=== PATIENT | female | born 1985 | race Caucasian/White ===

== ENCOUNTER 2016-10-18 18:10 | Emergency (ER) | payer OTHER ==
--- NOTE | 2016-10-18 19:08 | ED ---
General Adult HPI - General Chief complaint: Recheck/Abnormal Lab/Rx Stated complaint: sore throat/PATTIE Time Seen by Provider: 10/18/16 18:43 Source: patient, family, RN notes reviewed Mode of arrival: ambulatory Limitations: no limitations - History of Present Illness Initial comments: Chief complaint and history of present illness this is a 11-year-old female here for complaint of sore throat and fever. Also she has irritable bowel syndrome and has not had a bowel movement for 7 days. No nausea no vomiting. - Related Data Home Medications Medication Instructions Recorded Confirmed Ibuprofen [Motrin] 800 mg PO BID PRN 06/16/15 10/18/16 Previous Rx's Medication Instructions Recorded Ciprofloxacin HCl [Cipro] 500 mg PO Q12HR #14 tablet 10/18/16 Allergies Allergy/AdvReac Type Severity Reaction Status Date / Time sulfamethoxazole Allergy Rash/Hives Verified 10/18/16 18:33 [From Bactrim] trimethoprim [From Bactrim] Allergy Rash/Hives Verified 10/18/16 18:33 Review of Systems ROS Statement: Those systems with pertinent positive or pertinent negative responses have been documented in the HPI. Review of systems. Patient denies headache or stiff neck. She does have sore throat. Mild anterior cervical lymphadenopathy. No meningeal rotation. Deep breaths cause lower musculature discomfort both left and right side of the chest. She can splint the area and decreased pain. Minimal dry coughing. No abdominal pain. No peripheral problems. No rashes. All systems are reviewed. Past medical problems significant for arthritis and irritable bowel syndrome. Surgeries , cholecystectomy, multiple ear surgeries, she had arrived in her right femur. Also right knee was scoped 2 times. The patient's family history significant for skin cancer. Patient has ALLERGIES to sulfa. Denies smoking denies drinking. ROS Other: All systems not noted in ROS Statement are negative. Past Medical History Additional Past Medical History / Comment(s): arthritis and neuropathy History of Any Multi-Drug Resistant Organisms: None Reported Past Surgical History: Section, Cholecystectomy, Ear Surgery, Orthopedic Surgery Additional Past Surgical History / Comment(s): naman ear surgeries, andrey in femer in right leg Past Psychological History: No Psychological Hx Reported Smoking Status: Never smoker Past Alcohol Use History: None Reported Past Drug Use History: None Reported General Exam - General Exam Comments Initial Comments: General: The patient is awake and alert, complaining of a sore throat for 1 day. Dry cough. Vital signs temp 100.3 pulse 14 respiratory rate 20 pulse ox 97% room air blood pressure 180/98 Eye: Pupils are equal, round and reactive to light, extra-ocular movements are intact ; there is normal conjunctiva bilaterally. No signs of icterus. Ears, nose, mouth and throat: Evidence of previous surgery left ear right ear obstructed by cerumen. But no drainage noted. Beefy red pharynx and tonsils. Neck: Mild anterior cervical lymphadenopathy, no meningeal irritation or stiff neck. Cardiovascular: Tachycardic heart rate 102.. No murmur, rub or gallop is appreciated. Respiratory: Lungs are clear to auscultation, respirations are non-labored, breath sounds are equal. No wheezes, stridor, rales, or rhonchi. Occasional dry cough. Gastrointestinal: Soft, non-distended, non-tender abdomen without masses or organomegaly noted. There is no rebound or guarding present. Bowel sounds normal. Patient has history of irritable bowel syndrome. Has been trying laxatives without success. Back: There is no tenderness to palpation in the midline. There is no obvious deformity. No rashes noted. Musculoskeletal: Normal ROM, no tenderness, There is no pedal edema. There is no calf tenderness or swelling. Neurological: No complaint of or any evidence of any neurological deficits. Skin: Skin is warm and dry and no rashes or lesions are noted. Limitations: no limitations Course Vital Signs 10/18/16 18:30 Temperature 100.3 F H Pulse Rate 104 H Respiratory 20 Rate Blood Pressure 180/98 O2 Sat by Pulse 97 Oximetry Medical Decision Making - Medical Decision Making Vital decision making the patient's strep test is negative. With the urine shows signs of infection. The patient is not . She'll be advised to use Tylenol for fever and Cipro 500 twice a day for 7 days. Advised to get the urine rechecked in 10 days. Advised increase fluid intake. - Lab Data Lab Results 10/18/16 10/18/16 10/18/16 Range/Units 19:10 19:20 19:20 Urine Color Dark Yellow Urine Appearance Turbid H (Clear) Urine pH 5.5 (5.0-8.0) Ur Specific [place] 1.028 (1.001-1.035) Urine Protein 1+ H (Negative) Urine Glucose (UA) Negative (Negative) Urine Ketones Negative (Negative) Urine Blood Negative (Negative) Urine Nitrite Negative (Negative) Urine Bilirubin Negative (Negative) Urine Urobilinogen <2.0 (<2.0) mg/dL Ur Leukocyte Esterase Large H (Negative) Urine WBC 14 H (0-5) /hpf Urine Bacteria Few H (None) /hpf Urine Mucus Many H (None) /hpf Urine HCG, Qual Not Detected (Not Detectd) Group A Strep Rapid Negative (Negative) Disposition Clinical Impression: Urinary tract infection, Acute viral pharyngitis Disposition: HOME SELF-CARE Condition: Fair Instructions: Urinary Tract Infection in Women (ED), Pharyngitis (ED) Additional Instructions: Increase fluids. Use Tylenol for pain or fever. Take Cipro 500 twice a day for one week. Get urine rechecked 3 days later. Use magnesium citrate as directed Prescriptions: Ciprofloxacin HCl [Cipro] 500 mg PO Q12HR #14 tablet Referrals: None,Stated [Primary Care Provider] - 1-2 days Time of Disposition: 21:09
[2016-10-18 19:44] LABS: Appearance,Urine Turbid (Clear); Bacteria,Urine Few /hpf; Bilirubin,Urine Negative (Negative); Glucose,Urine (UA) Negative (Negative); Ketones,Urine Negative (Negative); Leukocyte Esterase,Urine Large (Negative); Mucus,Urine Many /hpf; Nitrite,Urine Negative (Negative); PH, Urine 5.5 (5.0-8.0); Particle Count 137199; Protein,Urine 1+ (Negative); Specific Gravity,Urine 1.028 (1.001-1.035); UA Billing (MACRO vs. MICRO) MICRO; Urobilinogen,Urine <2.0 mg/dL (<2.0); WBC,Urine 14 /hpf (0-5)
[2016-10-18] MEDS ORDERED: CIPROFLOXACIN HCL 500 MG TAB PO STA (21:07)
[2016-10-18] MEDS ORDERED: MAGNESIUM CITRATE 296 ML BOTTLE PO ONE (21:07)
[2016-10-18 21:26] VITALS: BP 124/72; PULSE 95; RESP 18; TEMP 100
== END 2016-10-18 21:26 | disposition home or self-care (01) ==
LOC: EC 18:10
DX: N39.0 Urinary tract infection, site not specified (principal); J02.9 Acute pharyngitis, unspecified; Z88.2 Allergy status to sulfonamides
CPT/HCPCS: 81001; 81025; 87081; 87086; 87430; 99283

== ENCOUNTER → 2017-01-16 | Outpatient (CLI) | payer BC, OTHER ==
--- NOTE | 2017-01-16 11:16 | FL ---
Modified barium swallow. HISTORY: Dysphagia. Modified barium swallow was performed with the department of speech pathology. The patient was prese nted with various consistencies of barium. There is no evidence for aspiration or penetration. Full report is to follow from the department of speech pathology. Impression: Normal study.
== END | disposition home or self-care (01) ==
LOC: RADFLMAIN 10:44
PROVIDERS: ATTEND Family Medicine
DX: R13.10 Dysphagia, unspecified (principal)
CPT/HCPCS: 74230

== ENCOUNTER 2017-04-28 17:29 | Emergency (ER) | payer BC, OTHER ==
[2017-04-28 17:35] VITALS: RESP 20
[2017-04-28] MEDS ORDERED: diphenhydrAMINE 50 MG/ML 1 ML VIAL IVP STA (17:46)
[2017-04-28] MEDS ORDERED: methylPREDNISolone SOD SUCCI 125 MG/2 ML VIAL IV STA (17:46)
[2017-04-28] MEDS ORDERED: SODIUM CHLORIDE 0.9% 500 ML IV ONE (17:46)
[2017-04-28] MEDS ORDERED: FAMOTIDINE 20 MG/2 ML VIAL IV STA (17:46)
--- NOTE | 2017-04-28 18:40 | ED ---
Allergic Reaction HPI - General Chief complaint: Allergic Reaction Stated complaint: Allergic reaction Time Seen by Provider: 04/28/17 17:42 Source: patient, RN notes reviewed Mode of arrival: ambulatory Limitations: no limitations - History of Present Illness Initial Comments: This a 30-year-old female presents emergency Department chief complaint ALLERGIC reaction. Patient states she had one similar few weeks ago. Patient states that it happened while she was at work after she went to the bathroom. Symmetrical her issue she had last time. Patient states she took 25 mg of Benadryl prior to arrival. She states that she has a diffuse rash with redness and hives. Patient denies any difficulty breathing or difficulty swallowing - Related Data Home Medications Medication Instructions Recorded Confirmed ALPRAZolam [Xanax] 0.5 mg PO BID PRN 04/16/17 04/28/17 Amitriptyline HCl [Elavil] 75 mg PO HS PRN 04/16/17 04/28/17 Lisinopril [Prinivil] 10 mg PO DAILY 04/16/17 04/28/17 medroxyPROGESTERone [Depo-Provera] 150 mg IM Q84D 04/16/17 04/28/17 traMADol HCL [Ultram] 50 mg PO BID PRN 04/28/17 04/28/17 Previous Rx's Medication Instructions Recorded EPINEPHrine (Auto Inject) [Epipen] 0.3 mg IM ONCE PRN #1 syringe 04/16/17 diphenhydrAMINE [Benadryl] 25 mg PO QID PRN #20 capsule 04/16/17 diphenhydrAMINE [Benadryl] 50 mg PO QID PRN #20 capsule 04/28/17 predniSONE 50 mg PO DAILY #3 tab 04/28/17 Allergies Allergy/AdvReac Type Severity Reaction Status Date / Time ciprofloxacin [From Cipro] Allergy Unknown Verified 04/28/17 17:51 sulfamethoxazole Allergy Rash/Hives Verified 04/28/17 17:51 [From Bactrim] trimethoprim [From Bactrim] Allergy Rash/Hives Verified 04/28/17 17:51 Review of Systems ROS Statement: Those systems with pertinent positive or pertinent negative responses have been documented in the HPI. ROS Other: All systems not noted in ROS Statement are negative. Past Medical History Past Medical History: No Reported History Additional Past Medical History / Comment(s): arthritis and neuropathy History of Any Multi-Drug Resistant Organisms: None Reported Past Surgical History: Section, Cholecystectomy, Ear Surgery, Orthopedic Surgery Additional Past Surgical History / Comment(s): naman ear surgeries, andrey in femer in right leg Past Psychological History: No Psychological Hx Reported Smoking Status: Never smoker Past Alcohol Use History: None Reported Past Drug Use History: None Reported General Exam Limitations: no limitations General appearance: alert, in no apparent distress Head exam: Present: atraumatic, normocephalic, normal inspection Eye exam: Present: normal appearance, PERRL, EOMI. Absent: scleral icterus, conjunctival injection, periorbital swelling ENT exam: Present: normal exam, normal oropharynx, mucous membranes moist, TM's normal bilaterally, normal external ear exam Neck exam: Present: normal inspection, full ROM. Absent: tenderness, meningismus, lymphadenopathy Respiratory exam: Present: normal lung sounds bilaterally. Absent: respiratory distress, wheezes, rales, rhonchi, stridor Cardiovascular Exam: Present: regular rate, normal rhythm, normal heart sounds. Absent: systolic murmur, diastolic murmur, rubs, gallop, clicks Neurological exam: Present: alert, oriented X3, CN II-XII intact Skin exam: Present: warm, dry, intact, normal color, rash, urticaria Course Vital Signs 04/28/17 17:32 Temperature 97.9 F Pulse Rate 123 H Respiratory 20 Rate Blood Pressure 156/80 O2 Sat by Pulse 99 Oximetry Medical Decision Making - Medical Decision Making 31-year-old female presented emergency from for ALLERGIC reaction, rash. Patient is feeling improved after IV Benadryl, Solu-Medrol and Pepcid. Return parameters were discussed. Disposition Clinical Impression: Acute allergic reaction, Urticaria Disposition: HOME SELF-CARE Condition: Stable Instructions: General Allergic Reaction (ED) Additional Instructions: Please return to the Emergency Department if symptoms worsen or any other concerns. Prescriptions: diphenhydrAMINE [Benadryl] 50 mg PO QID PRN #20 capsule PRN Reason: ALLERGIC symptoms predniSONE 50 mg PO DAILY #3 tab Referrals: Maicol Emerson DO [Primary Care Provider] - 1-2 days Time of Disposition: 18:40
[2017-04-28 19:00] VITALS: BP 148/84; PULSE 103; TEMP 98.1
== END 2017-04-28 19:00 | disposition home or self-care (01) ==
LOC: EC 17:29
DX: L50.0 Allergic urticaria (principal); Z79.3 Long term (current) use of hormonal contraceptives; Z79.899 Other long term (current) drug therapy; Z88.1 Allergy status to other antibiotic agents; Z88.2 Allergy status to sulfonamides
CPT/HCPCS: 99283; 96374; 96375 ×2; J1200; J2930

== ENCOUNTER 2017-05-18 15:54 | Emergency (ER) | payer BC, OTHER ==
[2017-05-18] MEDS ORDERED: ACETAMINOPHEN TAB 500 MG TAB PO STA (17:42)
[2017-05-18] MEDS ORDERED: methylPREDNISolone SOD SUCCI 125 MG/2 ML VIAL IV STA (17:43)
[2017-05-18] MEDS ORDERED: IBUPROFEN IV 600 MG in SODIUM CHLORIDE 0.9% 250 ML IV STA (17:44)
--- NOTE | 2017-05-18 18:18 | ED ---
General Adult HPI - General Chief complaint: Allergic Reaction Stated complaint: Allergic Reaction/SOB Time Seen by Provider: 05/18/17 17:19 Source: patient, RN notes reviewed, old records reviewed Mode of arrival: wheelchair Limitations: no limitations - History of Present Illness Initial comments: Patient is a 28-year-old female with flushing over her entire body for one evening after work. She reports that symptoms started while she was at work, and she went home. No exacerbating factors as to cause for allergic reaction, she reports this has happened multiple times in the past. Patient reports that she's also been having or IBS exacerbation. She reports she's been having some bloody stools starting this evening. Patient states that for the past hour. She reports she has no specific chest pain, she complains of abdominal pain. She reports uses very chilled. She also noted that her fingertips are turning blue. Patient states that she's had no fever, but arrives tachycardic and with rigors. . - Related Data Home Medications Medication Instructions Recorded Confirmed ALPRAZolam [Xanax] 0.5 mg PO BID PRN 04/16/17 05/18/17 Amitriptyline HCl [Elavil] 75 mg PO HS PRN 04/16/17 05/18/17 Lisinopril [Prinivil] 10 mg PO DAILY 04/16/17 05/18/17 traMADol HCL [Ultram] 50 - 100 mg PO TID PRN 04/28/17 05/18/17 Ibuprofen [Motrin] 600 mg PO BID PRN 05/18/17 05/18/17 Previous Rx's Medication Instructions Recorded Diphenox-Atrop 2.5-0.025 mg 1 tab PO QID PRN #10 tablet 05/18/17 [Lomotil] Ondansetron Odt [Zofran Odt] 4 mg PO Q8HR PRN #12 tab 05/18/17 Famotidine [Pepcid] 20 mg PO BID #10 tablet 05/19/17 diphenhydrAMINE [Benadryl] 50 mg PO QID #20 capsule 05/19/17 predniSONE 60 mg PO DAILY #30 tab 05/19/17 Allergies Allergy/AdvReac Type Severity Reaction Status Date / Time ciprofloxacin [From Cipro] Allergy Unknown Verified 05/19/17 01:17 sulfamethoxazole Allergy Rash/Hives Verified 05/19/17 01:17 [From Bactrim] trimethoprim [From Bactrim] Allergy Rash/Hives Verified 05/19/17 01:17 Review of Systems ROS Statement: Those systems with pertinent positive or pertinent negative responses have been documented in the HPI. ROS Other: All systems not noted in ROS Statement are negative. Past Medical History Past Medical History: No Reported History Additional Past Medical History / Comment(s): arthritis and neuropathy History of Any Multi-Drug Resistant Organisms: None Reported Past Surgical History: Section, Cholecystectomy, Ear Surgery, Orthopedic Surgery Additional Past Surgical History / Comment(s): naman ear surgeries, andrey in femer in right leg Past Psychological History: No Psychological Hx Reported Smoking Status: Never smoker Past Alcohol Use History: None Reported Past Drug Use History: None Reported General Exam - General Exam Comments Initial Comments: Is a 31-year-old female. Patient appears to be in moderate discomfort. She has active riders, and is very flushed, a diffuse erythema over her face, chest , abdomen and back. Limitations: no limitations General appearance: alert, in no apparent distress Head exam: Present: atraumatic, normocephalic, normal inspection Eye exam: Present: normal appearance, PERRL, EOMI. Absent: scleral icterus, conjunctival injection, periorbital swelling ENT exam: Present: normal exam, normal oropharynx, mucous membranes moist Neck exam: Present: normal inspection. Absent: tenderness, meningismus, lymphadenopathy Respiratory exam: Present: normal lung sounds bilaterally. Absent: respiratory distress, wheezes, rales, rhonchi, stridor Cardiovascular Exam: Present: regular rate, normal rhythm, normal heart sounds. Absent: systolic murmur, diastolic murmur, rubs, gallop, clicks GI/Abdominal exam: Present: soft, tenderness (periumbilical tenderness), normal bowel sounds. Absent: distended, guarding, rebound, rigid Extremities exam: Present: normal inspection, full ROM, normal capillary refill. Absent: tenderness, pedal edema, joint swelling, calf tenderness Back exam: Present: normal inspection, full ROM Neurological exam: Present: alert, oriented X3, CN II-XII intact, normal gait Psychiatric exam: Present: normal affect, normal mood Skin exam: Present: warm, dry, intact, normal color. Absent: rash Course Vital Signs 05/18/17 05/18/17 05/18/17 15:57 18:05 19:04 Temperature 98.1 F 97 F L Pulse Rate 118 H 93 Respiratory 20 20 Rate Blood Pressure 106/55 131/70 O2 Sat by Pulse 98 97 Oximetry 05/18/17 05/18/17 20:12 21:23 Temperature 98.1 F Pulse Rate 86 95 Respiratory 18 18 Rate Blood Pressure 121/65 128/64 O2 Sat by Pulse 99 96 Oximetry Medical Decision Making - Medical Decision Making Patient is a 28-year-old female with flushing over her entire body for one evening after work. She reports that symptoms started while she was at work, and she went home. No exacerbating factors as to cause for allergic reaction, she reports this has happened multiple times in the past. Patient reports that she's also been having or IBS exacerbation. She reports she's been having some bloody stools starting this evening. Patient states that for the past hour. Patient was given IV fluids, and lab work obtained. Patient had elevated WBC, underwent CT abdomen and pelivs. Her hives and flushing went down with Fluids and steriods and motrin and tylenol. She states that she had another episode of bloody stool. CT abdomen shows no acute findings. Discussed with Dr. Thomas, he also examined patient. She was notn tender. Patient had a mildly elevated lactic acid, at 2.8. Given 2L of fluids. Patient does feel better at this time, reports she would likel to go home. I believe she was having an inflammatory response to IBS exacerbation. Discussed follow up with PCP and GI. Return parameters discussed. - Lab Data Result diagrams: 05/18/17 18:26 05/18/17 18:26 Lab Results 05/18/17 05/18/17 05/18/17 Range/Units 18:26 18:26 18:26 WBC 19.3 H (3.8-10.6) k/uL RBC 5.34 (3.80-5.40) m/uL Hgb 15.2 (11.4-16.0) gm/dL Hct 47.1 H (34.0-46.0) % MCV 88.2 (80.0-100.0) fL MCH 28.5 (25.0-35.0) pg MCHC 32.3 (31.0-37.0) g/dL RDW 14.5 (11.5-15.5) % Plt Count 348 (150-450) k/uL Neutrophils % 88 % Lymphocytes % 9 % Monocytes % 1 % Eosinophils % 0 % Basophils % 0 % Neutrophils # 17.0 H (1.3-7.7) k/uL Lymphocytes # 1.8 (1.0-4.8) k/uL Monocytes # 0.3 (0-1.0) k/uL Eosinophils # 0.1 (0-0.7) k/uL Basophils # 0.0 (0-0.2) k/uL PT (9.0-12.0) sec INR (<1.2) APTT (22.0-30.0) sec Sodium 138 (137-145) mmol/L Potassium 4.2 (3.5-5.1) mmol/L Chloride 103 (98-107) mmol/L Carbon Dioxide 21 L (22-30) mmol/L Anion Gap 14 mmol/L BUN 13 (7-17) mg/dL Creatinine 0.82 (0.52-1.04) mg/dL Est GFR (MDRD) Af Amer >60 (>60 ml/min/1.73 sqM) Est GFR (MDRD) Non-Af >60 (>60 ml/min/1.73 sqM) Glucose 184 H (74-99) mg/dL Lactic Ac Sepsis Rflx Plasma Lactic Acid Emiliano 2.8 H* (0.7-2.0) mmol/L Calcium 9.6 (8.4-10.2) mg/dL Total Bilirubin 0.3 (0.2-1.3) mg/dL AST 26 (14-36) U/L ALT 35 (9-52) U/L Alkaline Phosphatase 75 (38-126) U/L Total Protein 7.8 (6.3-8.2) g/dL Albumin 4.3 (3.5-5.0) g/dL Urine Color Urine Appearance (Clear) Urine pH (5.0-8.0) Ur Specific [place] (1.001-1.035) Urine Protein (Negative) Urine Glucose (UA) (Negative) Urine Ketones (Negative) Urine Blood (Negative) Urine Nitrite (Negative) Urine Bilirubin (Negative) Urine Urobilinogen (<2.0) mg/dL Ur Leukocyte Esterase (Negative) Urine RBC (0-5) /hpf Urine WBC (0-5) /hpf Ur Squamous Epith Cells (0-4) /hpf Hyaline Casts (0-2) /lpf Urine Mucus (None) /hpf Urine HCG, Qual (Not Detectd) Stool Occult Blood (Negative) Influenza Type A RNA (Not Detectd) Influenza Type B (PCR) (Not Detectd) 05/18/17 05/18/17 05/18/17 Range/Units 18:26 19:06 19:06 WBC (3.8-10.6) k/uL RBC (3.80-5.40) m/uL Hgb (11.4-16.0) gm/dL Hct (34.0-46.0) % MCV (80.0-100.0) fL MCH (25.0-35.0) pg MCHC (31.0-37.0) g/dL RDW (11.5-15.5) % Plt Count (150-450) k/uL Neutrophils % % Lymphocytes % % Monocytes % % Eosinophils % % Basophils % % Neutrophils # (1.3-7.7) k/uL Lymphocytes # (1.0-4.8) k/uL Monocytes # (0-1.0) k/uL Eosinophils # (0-0.7) k/uL Basophils # (0-0.2) k/uL PT 10.6 (9.0-12.0) sec INR 1.1 (<1.2) APTT 23.6 (22.0-30.0) sec Sodium (137-145) mmol/L Potassium (3.5-5.1) mmol/L Chloride (98-107) mmol/L Carbon Dioxide (22-30) mmol/L Anion Gap mmol/L BUN (7-17) mg/dL Creatinine (0.52-1.04) mg/dL Est GFR (MDRD) Af Amer (>60 ml/min/1.73 sqM) Est GFR (MDRD) Non-Af (>60 ml/min/1.73 sqM) Glucose (74-99) mg/dL Lactic Ac Sepsis Rflx Plasma Lactic Acid Emiliano (0.7-2.0) mmol/L Calcium (8.4-10.2) mg/dL Total Bilirubin (0.2-1.3) mg/dL AST (14-36) U/L ALT (9-52) U/L Alkaline Phosphatase (38-126) U/L Total Protein (6.3-8.2) g/dL Albumin (3.5-5.0) g/dL Urine Color Yellow Urine Appearance Cloudy H (Clear) Urine pH 5.0 (5.0-8.0) Ur Specific [place] 1.024 (1.001-1.035) Urine Protein 1+ H (Negative) Urine Glucose (UA) Trace H (Negative) Urine Ketones Negative (Negative) Urine Blood Negative (Negative) Urine Nitrite Negative (Negative) Urine Bilirubin Negative (Negative) Urine Urobilinogen 3.0 (<2.0) mg/dL Ur Leukocyte Esterase Negative (Negative) Urine RBC 1 (0-5) /hpf Urine WBC 5 (0-5) /hpf Ur Squamous Epith Cells 7 H (0-4) /hpf Hyaline Casts 20 H (0-2) /lpf Urine Mucus Occasional H (None) /hpf Urine HCG, Qual (Not Detectd) Stool Occult Blood Positive H (Negative) Influenza Type A RNA (Not Detectd) Influenza Type B (PCR) (Not Detectd) 05/18/17 05/18/17 05/18/17 Range/Units 19:06 19:21 20:36 WBC (3.8-10.6) k/uL RBC (3.80-5.40) m/uL Hgb (11.4-16.0) gm/dL Hct (34.0-46.0) % MCV (80.0-100.0) fL MCH (25.0-35.0) pg MCHC (31.0-37.0) g/dL RDW (11.5-15.5) % Plt Count (150-450) k/uL Neutrophils % % Lymphocytes % % Monocytes % % Eosinophils % % Basophils % % Neutrophils # (1.3-7.7) k/uL Lymphocytes # (1.0-4.8) k/uL Monocytes # (0-1.0) k/uL Eosinophils # (0-0.7) k/uL Basophils # (0-0.2) k/uL PT (9.0-12.0) sec INR (<1.2) APTT (22.0-30.0) sec Sodium (137-145) mmol/L Potassium (3.5-5.1) mmol/L Chloride (98-107) mmol/L Carbon Dioxide (22-30) mmol/L Anion Gap mmol/L BUN (7-17) mg/dL Creatinine (0.52-1.04) mg/dL Est GFR (MDRD) Af Amer (>60 ml/min/1.73 sqM) Est GFR (MDRD) Non-Af (>60 ml/min/1.73 sqM) Glucose (74-99) mg/dL Lactic Ac Sepsis Rflx Y Plasma Lactic Acid Emiliano (0.7-2.0) mmol/L Calcium (8.4-10.2) mg/dL Total Bilirubin (0.2-1.3) mg/dL AST (14-36) U/L ALT (9-52) U/L Alkaline Phosphatase (38-126) U/L Total Protein (6.3-8.2) g/dL Albumin (3.5-5.0) g/dL Urine Color Urine Appearance (Clear) Urine pH (5.0-8.0) Ur Specific [place] (1.001-1.035) Urine Protein (Negative) Urine Glucose (UA) (Negative) Urine Ketones (Negative) Urine Blood (Negative) Urine Nitrite (Negative) Urine Bilirubin (Negative) Urine Urobilinogen (<2.0) mg/dL Ur Leukocyte Esterase (Negative) Urine RBC (0-5) /hpf Urine WBC (0-5) /hpf Ur Squamous Epith Cells (0-4) /hpf Hyaline Casts (0-2) /lpf Urine Mucus (None) /hpf Urine HCG, Qual Not Detected (Not Detectd) Stool Occult Blood (Negative) Influenza Type A RNA Not Detected (Not Detectd) Influenza Type B (PCR) Not Detected (Not Detectd) 05/18/17 20:49 EKG shows sinus rhythm, normal EKG noted. There is a 7 beats were minute. Verbal 126 most seconds. QRS duration 80 ms. QT QTc is 374/450 mils x-ray noticed that the ST elevation or T-wave inversion. - Radiology Data Radiology results: report reviewed No significant acute finding seen. Dominant left ovarian follicle measuring 2.7 cm. Prominent size of spleen. Few sigmoid diverticula without evidence of diverticulitis. CXR reveiwed and no acute process. Disposition Clinical Impression: Allergic reaction, Bloody stool, Gastroenteritis Disposition: HOME SELF-CARE Condition: Good Instructions: Gastroenteritis (ED) Additional Instructions: Patient has a follow-up with primary care provider. Increase her fluid intake. Return to the emergency department if any alarming signs or symptoms occur. Prescriptions: Diphenox-Atrop 2.5-0.025 mg [Lomotil] 1 tab PO QID PRN #10 tablet PRN Reason: Loose Stool Ondansetron Odt [Zofran Odt] 4 mg PO Q8HR PRN #12 tab PRN Reason: Nausea Referrals: Maicol Emerson DO [Primary Care Provider] - 1-2 days Time of Disposition: 21:04
[2017-05-18] MEDS: SODIUM CHLORIDE 0.9% 500 ML IV SCH ×2 (18:27→19:28)
[2017-05-18 18:38] LABS: Basophils % (A) 0 %; Eosinophils # (A) 0.1 k/uL (0-0.7); Eosinophils % (A) 0 %; HCT 47.1 % (34.0-46.0); HGB 15.2 gm/dL (11.4-16.0); Lymphocytes # (A) 1.8 k/uL (1.0-4.8); Lymphocytes % (A) 9 %; MCH 28.5 pg (25.0-35.0); MCHC 32.3 g/dL (31.0-37.0); MCV 88.2 fL (80.0-100.0); Mean Platelet Volume 7.8; Monocytes # (A) 0.3 k/uL (0-1.0); Monocytes % (A) 1 %; Neutrophils % (A) 88 %; Platelet Count 348 k/uL (150-450); RBC 5.34 m/uL (3.80-5.40); RDW 14.5 % (11.5-15.5); WBC 19.3 k/uL (3.8-10.6)
[2017-05-18 18:46] LABS: INR 1.1 (<1.2); Prothrombin Time 10.6 sec (9.0-12.0)
[2017-05-18 18:47] LABS: Partial Thromboplastin Time 23.6 sec (22.0-30.0)
[2017-05-18 18:51] LABS: ALT 35 U/L (9-52); AST 26 U/L (14-36); Albumin 4.3 g/dL (3.5-5.0); Alkaline Phosphatase 75 U/L (38-126); Anion Gap 14 mmol/L; Blood Urea Nitrogen 13 mg/dL (7-17); Calcium 9.6 mg/dL (8.4-10.2); Carbon Dioxide 21 mmol/L (22-30); Chloride 103 mmol/L (98-107); Glucose 184 mg/dL (74-99); Potassium 4.2 mmol/L (3.5-5.1); Sodium 138 mmol/L (137-145); Total Bilirubin 0.3 mg/dL (0.2-1.3); Total Protein 7.8 g/dL (6.3-8.2)
[2017-05-18] MEDS ORDERED: RX INFO: IV CONTRAST WAS GIVEN 1 EACH MISC MISCELLANE PRN (19:02)
[2017-05-18 19:23] LABS: Appearance,Urine Cloudy (Clear); Bilirubin,Urine Negative (Negative); Blood,Urine Negative (Negative); Color,Urine Yellow; Glucose,Urine (UA) Trace (Negative); Hyaline Casts,Urine 20 /lpf (0-2); Ketones,Urine Negative (Negative); Leukocyte Esterase,Urine Negative (Negative); Mucus,Urine Occasional /hpf; Nitrite,Urine Negative (Negative); Protein,Urine 1+ (Negative); RBC,Urine 1 /hpf (0-5); Specific Gravity,Urine 1.024 (1.001-1.035); Squamous Epithelial Cell,Urine 7 /hpf (0-4); WBC,Urine 5 /hpf (0-5)
[2017-05-18] MEDS ORDERED: HYDROmorphone 1 MG/ML 1 ML SYRINGE IVP STA (19:24)
--- NOTE | 2017-05-18 20:07 | CT ---
EXAMINATION TYPE: CT abdomen pelvis w con DATE OF EXAM: 05/18/2017 HISTORY: Cramping, diarrhea and rectal bleeding. History of IBS. CT DLP: 3204.10mGycm Automated Exposure Control for Dose Reduction was Utilized. CONTRAST: CT scan of the abdomen and pelvis is performed with IV Contrast, patient injected with 100 mL of Omni paque 300. COMPARISON: None. FINDINGS: LUNG BASES: No significant abnormality is appreciated. No pleural effusion. LIVER/GB: No significant abnormality is appreciated. PANCREAS: No significant abnormality is seen. No ductal dilatation. SPLEEN: No significant abnormality is seen. No splenomegaly. Spleen measures 13.1 cm in craniocaudal dimension. ADRENALS: No significant abnormality is seen. Adrenal glands are symmetric. KIDNEYS: No significant abnormality is seen. BOWEL: Bowel is nonenlarged. No evidence of bowel obstruction. Appendix is air-filled and within norm al limits. Small fat filled subcentimeter periumbilical hernia seen. Few sigmoid diverticula are pres ent without pericolonic fat stranding. UTERUS/ADNEXA: No gross abnormality seen. Dominant follicle on the left measures up to 2.7 cm. LYMPH NODES: No greater than 1cm abdominal or pelvic lymph nodes are appreciated. OSSEOUS STRUCTURES: Nonspecific peripherally sclerotic right femoral head lesion and other punctate p elvic sclerotic lesions are seen. On coronal imaging the right proximal femur lesion appears to be se quela of prior trauma. Other punctate sclerotic foci are likely due to bone islands. Mild multilevel degenerative changes of the visualized thoracolumbar spine are noted. IMPRESSION: 1. No significant acute finding is seen to account for patient's clinical symptoms. No evidence of alfredo wel traction. 2. Dominant left ovarian follicle measuring 2.7 cm. 3. Prominent size of the spleen. 4. Few sigmoid diverticula without evidence of diverticulitis.
[2017-05-18 20:13] VITALS: RESP 18
[2017-05-18] MEDS ORDERED: ONDANSETRON 4 MG/2 ML VIAL IVP STA (20:47)
--- NOTE | 2017-05-18 21:10 | XR ---
EXAMINATION TYPE: XR chest 2V DATE OF EXAM: 05/18/2017 COMPARISON: NONE HISTORY: Chest pain and pressure TECHNIQUE: Frontal and lateral views of the chest are obtained. FINDINGS: There is no focal air space opacity, pleural effusion, or pneumothorax seen. The cardiac silhouette size is within normal limits. The osseous structures are intact. IMPRESSION: No acute cardiopulmonary process.
[2017-05-18 21:24] VITALS: BP 128/64; PULSE 95; TEMP 98.1
== END 2017-05-18 21:25 | disposition home or self-care (01) ==
LOC: EC 15:54
DX: T78.40XA Allergy, unspecified, initial encounter (principal); K52.9 Noninfective gastroenteritis and colitis, unspecified; Z90.49 Acquired absence of other specified parts of digestive tract; Z79.899 Other long term (current) drug therapy; Z88.1 Allergy status to other antibiotic agents; Z88.2 Allergy status to sulfonamides
CPT/HCPCS: 99285; 96365; 96375 ×3; 96361 ×2; 87502 ×2; 36415; 93005; 80053; 83605; 85025; 85610; 85730; 82272; 81001; 81025; 87040; 87086; 71046; 74177; J2930; J2405; J1170; Q9967; J1741

== ENCOUNTER 2017-05-19 01:12 | Emergency (ER) | payer BC, OTHER ==
[2017-05-19 01:17] VITALS: RESP 18
[2017-05-19] MEDS ORDERED: FAMOTIDINE 20 MG/2 ML VIAL IV STA (01:28)
[2017-05-19] MEDS ORDERED: diphenhydrAMINE 50 MG/ML 1 ML VIAL IVP STA (01:28)
[2017-05-19] MEDS ORDERED: methylPREDNISolone SOD SUCCI 125 MG/2 ML VIAL IV STA (01:28)
[2017-05-19] MEDS ORDERED: SODIUM CHLORIDE 0.9% 500 ML IV ONE (01:40)
[2017-05-19 03:31] VITALS: PULSE 90
--- NOTE | 2017-05-19 05:00 | ED ---
Allergic Reaction HPI - General Chief complaint: Allergic Reaction Stated complaint: Allergic reaction Time Seen by Provider: 05/19/17 01:27 Source: patient Mode of arrival: ambulatory Limitations: no limitations - History of Present Illness Initial Comments: This patient is a 31-year-old woman who presents for suspected ALLERGY. She complains of red itching and burning skin. She had been seen here tonight for abdominal pain and had a computed tomography scan with contrast area after she left she started noticing the itching and burning sensation and then saw the rash developing on her skin. She denies dyspnea. She is not having vomiting or diarrhea. No cough or tongue swelling. MD Complaint: allergic reaction, hives -: hour(s) Exposure: other (CT contrast) Symptoms: rash, itching Severity: moderate Treatment Prior to Arrival: none Previous Allergy History: none - Related Data Home Medications Medication Instructions Recorded Confirmed ALPRAZolam [Xanax] 0.5 mg PO BID PRN 04/16/17 05/18/17 Amitriptyline HCl [Elavil] 75 mg PO HS PRN 04/16/17 05/18/17 Lisinopril [Prinivil] 10 mg PO DAILY 04/16/17 05/18/17 traMADol HCL [Ultram] 50 - 100 mg PO TID PRN 04/28/17 05/18/17 Ibuprofen [Motrin] 600 mg PO BID PRN 05/18/17 05/18/17 Previous Rx's Medication Instructions Recorded Diphenox-Atrop 2.5-0.025 mg 1 tab PO QID PRN #10 tablet 05/18/17 [Lomotil] Ondansetron Odt [Zofran Odt] 4 mg PO Q8HR PRN #12 tab 05/18/17 Famotidine [Pepcid] 20 mg PO BID #10 tablet 05/19/17 diphenhydrAMINE [Benadryl] 50 mg PO QID #20 capsule 05/19/17 predniSONE 60 mg PO DAILY #30 tab 05/19/17 Allergies Allergy/AdvReac Type Severity Reaction Status Date / Time ciprofloxacin [From Cipro] Allergy Unknown Verified 05/19/17 01:17 sulfamethoxazole Allergy Rash/Hives Verified 05/19/17 01:17 [From Bactrim] trimethoprim [From Bactrim] Allergy Rash/Hives Verified 05/19/17 01:17 Review of Systems ROS Statement: Those systems with pertinent positive or pertinent negative responses have been documented in the HPI. ROS Other: All systems not noted in ROS Statement are negative. Past Medical History Past Medical History: No Reported History Additional Past Medical History / Comment(s): arthritis and neuropathy History of Any Multi-Drug Resistant Organisms: None Reported Past Surgical History: Section, Cholecystectomy, Ear Surgery, Orthopedic Surgery Additional Past Surgical History / Comment(s): naman ear surgeries, andrey in femer in right leg Past Psychological History: No Psychological Hx Reported Smoking Status: Never smoker Past Alcohol Use History: None Reported Past Drug Use History: None Reported General Exam Limitations: no limitations General appearance: alert, in no apparent distress, obese Head exam: Present: atraumatic, normocephalic Eye exam: Present: normal appearance. Absent: scleral icterus, conjunctival injection ENT exam: Present: normal oropharynx, mucous membranes moist Neck exam: Present: normal inspection Respiratory exam: Present: normal lung sounds bilaterally. Absent: respiratory distress, wheezes, rales, rhonchi, stridor Cardiovascular Exam: Present: regular rate, normal rhythm, normal heart sounds. Absent: systolic murmur, diastolic murmur, rubs, gallop GI/Abdominal exam: Present: soft. Absent: distended, tenderness, guarding, rebound, rigid Extremities exam: Present: normal inspection, normal capillary refill. Absent: pedal edema, calf tenderness Back exam: Present: normal inspection. Absent: CVA tenderness (R), CVA tenderness (L) Neurological exam: Present: alert Skin exam: Present: warm, dry, intact, urticaria Course Vital Signs 05/19/17 05/19/17 05/19/17 01:13 03:29 05:33 Temperature 97.2 F L 98.7 F 98 F Pulse Rate 126 H 90 90 Respiratory 18 18 18 Rate Blood Pressure 161/94 154/78 154/79 O2 Sat by Pulse 98 99 98 Oximetry Medical Decision Making - Medical Decision Making Patient is 31-year-old woman who presents with ALLERGY following CT with contrast. She is given steroids and antihistamines. She is observed in the emergency room until she is showing improvement and she does want to go home with further steroids and antihistamines. Disposition Clinical Impression: Allergic reaction Disposition: HOME SELF-CARE Condition: Fair Instructions: Anaphylaxis (ED) Prescriptions: diphenhydrAMINE [Benadryl] 50 mg PO QID #20 capsule Famotidine [Pepcid] 20 mg PO BID #10 tablet predniSONE 60 mg PO DAILY #30 tab Referrals: Maicol Emerson DO [Primary Care Provider] - 1-2 days
[2017-05-19 05:35] VITALS: BP 154/79; TEMP 98
== END 2017-05-19 05:15 | disposition home or self-care (01) ==
LOC: EC 01:12
DX: L50.0 Allergic urticaria (principal); T50.8X5A Adverse effect of diagnostic agents, initial encounter; Z79.899 Other long term (current) drug therapy; Z88.1 Allergy status to other antibiotic agents; Z88.2 Allergy status to sulfonamides
CPT/HCPCS: 99283; 96374; 96375 ×2; J1200; J2930

== ENCOUNTER → 2017-06-13 | Outpatient (CLI) | payer BC, OTHER | END | disposition home or self-care (01) | LOC: LABWHC1 10:36 | PROVIDERS: ATTEND Obstetrics & Gynecology | DX: N91.2 Amenorrhea, unspecified (principal) | CPT/HCPCS: 36415; 84702 ==

== ENCOUNTER 2017-10-12 09:19 | Day surgery (SDC) | payer BC, OTHER ==
[2017-10-07 15:43] VITALS: BMI 47.7
[~2017-10-12 09:19] MED LIST: LACTATED RINGERS 1,000 ML IV SCH; LIDOCAINE 1% 20 ML VIAL (10MG/ML) FOR IV START INTRADERMA PRN; MIDAZOLAM 2 MG/2 ML VIAL IV PRN
[2017-10-12 10:31] VITALS: TEMP 97.8
[2017-10-12] MEDS ORDERED: LACTATED RINGERS 1,000 ML IV ONE (10:42)
[2017-10-12] MEDS ORDERED: PROPOFOL 10 MG/ML 20 ML VIAL IV ONE (11:21)
[2017-10-12 11:51] VITALS: RESP 16
--- NOTE | 2017-10-12 11:53 | P.PCN ---
Date of Procedure: 10/12/17 Procedure(s) Performed: Procedure: Total colonoscopy. Preoperative diagnosis: Rectal bleeding. Postoperative diagnosis: Exam within normal limits. Preparation: HalfLytely prep. Sedation: Was provided by anesthesia. Brief clinical history: The patient is a 31-year-old female who is scheduled for this evaluation because of rectal bleeding that she experiences for the last 2 months. She had no bleeding for the last week. The patient has history of constipation and has been treated for constipation predominant irritable bowel syndrome. The patient may go for 2 weeks without passing a bowel movement then would have diarrhea for a few hours, then the cycle with repeat itself. She often passes bright red per rectum and has the urge to have a bowel movement. Sometimes she sees dark blood mixed in the stools. She denies straining or bearing down when this happens. She does describe some pain with her bleeding. No family history of colon cancer. This evaluation is to assess for a source of bleeding. Procedure: With the patient on her left lateral decubitus position and after informed consent and adequate sedation, the perianal area was inspected and it did not show any fissures or fistulas. There were no masses felt on digital rectal examination. The Olympus CFQ 160L video colonoscope was then inserted in the rectum in the usual fashion and advanced to the cecum. The mucosa appeared healthy. No polyps or tumors were seen or any obvious diverticular disease or other pathology. I retroflexed the endoscope in the rectum before the endoscope was withdrawn. The patient tolerated the procedure well. Plan: The patient was reassured. She will follow-up with you as planned. I suspect that her bleeding could be related to an anal fissure especially in the setting of constipation. We discussed again dietary measures and local care and the overall management of her constipation. For screening for neoplasia, I recommended repeat exam at age 48. I will keep you updated on her progress.
[2017-10-12 12:18] VITALS: BP 105/57; PULSE 63
== END 2017-10-12 12:21 | disposition home or self-care (01) ==
LOC: ORWHC2ENDO 09:19
DX: K62.5 Hemorrhage of anus and rectum (principal); K58.9 Irritable bowel syndrome, unspecified; I10 Essential (primary) hypertension; Z79.1 Long term (current) use of non-steroidal anti-inflammatories (NSAID); Z79.899 Other long term (current) drug therapy; Z88.1 Allergy status to other antibiotic agents; Z88.2 Allergy status to sulfonamides; Z91.048 Other nonmedicinal substance allergy status
CPT/HCPCS: 81025; 45378; J2704

== ENCOUNTER 2018-03-29 06:51 | Emergency (ER) | payer BC, OTHER ==
[2018-03-29 07:09] VITALS: PULSE 92; RESP 18; TEMP 98.4
--- NOTE | 2018-03-29 07:28 | ED ---
General Adult HPI - General Chief complaint: Upper Respiratory Infection Stated complaint: Flu symptoms Time Seen by Provider: 03/29/18 07:16 Source: patient, RN notes reviewed Mode of arrival: ambulatory Limitations: no limitations - History of Present Illness Initial comments: Patient 32-year-old female presenting to the emergency room today with a chief complaint of cough congestion over the last day. Does admit to a sore throat. States she has sinus congestion. Does admit to cough. Denies any sputum production. She states she has migraine headache. States migraines located throughout the head. Consistent with headaches in the past. Patient admits to nausea or vomiting. States consistent with migraines is had in the past. Denies any other complaints or symptoms. Patient denies any recent fever, chills , shortness of breath, chest pain, back pain, abdominal pain, numbness or tingling, dysuria or hematuria, constipation or diarrhea, visual changes, or any other complaints. - Related Data Home Medications Medication Instructions Recorded Confirmed Lisinopril [Prinivil] 10 mg PO DAILY 04/16/17 03/29/18 Ibuprofen [Motrin Ib] 600 mg PO Q6H PRN 03/29/18 03/29/18 Previous Rx's Medication Instructions Recorded Amoxicillin/Potassium Clav 1 each PO Q12HR #20 tab 03/29/18 [Augmentin 875-125 Tablet] Fluticasone Propionate [Flonase 1 - 2 spray EA NOSTRIL DAILY 5 03/29/18 Allergy Relief] Days ml Allergies Allergy/AdvReac Type Severity Reaction Status Date / Time ciprofloxacin [From Cipro] Allergy Rash/Hives Verified 03/29/18 08:29 Iodinated Contrast- Oral and Allergy Rash/Hives Verified 03/29/18 08:29 IV Dye sulfamethoxazole Allergy Rash/Hives Verified 03/29/18 08:29 [From Bactrim] trimethoprim [From Bactrim] Allergy Rash/Hives Verified 03/29/18 08:29 Review of Systems ROS Statement: Those systems with pertinent positive or pertinent negative responses have been documented in the HPI. ROS Other: All systems not noted in ROS Statement are negative. Past Medical History Past Medical History: Hypertension Additional Past Medical History / Comment(s): arthritis and neuropathy History of Any Multi-Drug Resistant Organisms: None Reported Past Surgical History: Section, Cholecystectomy, Ear Surgery, Orthopedic Surgery Additional Past Surgical History / Comment(s): naman ear surgeries, andrey in femur in right leg-SINCE REMOVED, RT KNEE SCOPE, COLONOSCOPY Past Anesthesia/Blood Transfusion Reactions: No Reported Reaction Past Psychological History: Anxiety Smoking Status: Never smoker Past Alcohol Use History: Occasional Past Drug Use History: None Reported - Past Family History Mother Family Medical History: No Reported History General Exam - General Exam Comments Initial Comments: General: The patient is awake and alert, in no distress, and does not appear acutely ill. Eye: Pupils are equal, round and reactive to light. Extra-ocular movements are intact. No nystagmus. There is normal conjunctiva bilaterally. No signs of icterus. Ears, nose, mouth and throat: There are moist mucous membranes and no oral lesions. Tender to palpation over frontal maxillary sinuses. Uvula midline. Tonsils are 2+. No exudate. Neck: The neck is supple, there is no tenderness or JVD. Cardiovascular: There is a regular rate and rhythm. No murmur, rub or gallop is appreciated. Respiratory: Lungs are clear to auscultation, respirations are non-labored, breath sounds are equal. No wheezes, stridor, rales, or rhonchi. Musculoskeletal: Normal ROM, no tenderness. Sensation intact. Strength 5/5. Pulses equal bilaterally 2+. Neurological: A&O x 3. CN II-XII intact, There are no obvious motor or sensory deficits. Coordination appears grossly intact. Speech is normal. Skin: Skin is warm and dry and no rashes or lesions are noted. Psychiatric: Cooperative, appropriate mood & affect, normal judgment. Limitations: no limitations Course Vital Signs 03/29/18 07:06 Temperature 98.4 F Pulse Rate 92 Respiratory 18 Rate Blood Pressure 136/96 O2 Sat by Pulse 99 Oximetry Medical Decision Making - Medical Decision Making Patient does have tenderness over the sinuses. Will be treated for sinus infection. Patient given medications for her migraine headache here in emergency room portal, [facility]. Patient's feeling better. Will be discharged home advised continue anti-inflammatories for a rebound headache. Advised follow-up family physician of his x-rays returning if symptoms increase worsen. Disposition Clinical Impression: Acute sinusitis Disposition: HOME SELF-CARE Instructions: Sinusitis (ED) Additional Instructions: Please use medication as discussed. Please follow-up with family doctor in the next 2 days of symptoms have not improved. Please return to emergency room if the symptoms increase or worsen or for any other concerns. Prescriptions: Amoxicillin/Potassium Clav [Augmentin 875-125 Tablet] 1 each PO Q12HR #20 tab Fluticasone Propionate [Flonase Allergy Relief] 1 - 2 spray EA NOSTRIL DAILY 5 Days ml Is patient prescribed a controlled substance at d/c from ED?: No Referrals: Maicol Emerson DO [Primary Care Provider] - 1-2 days Time of Disposition: 09:02
[2018-03-29] MEDS ORDERED: SODIUM CHLORIDE 0.9% 1,000 ML IV STA (07:34)
[2018-03-29] MEDS ORDERED: METOCLOPRAMIDE 5 MG/ML 2 ML VIAL IVP STA (07:34)
[2018-03-29] MEDS ORDERED: KETOROLAC 30 MG/ML 1 ML VIAL IVP STA (07:34)
[2018-03-29] MEDS ORDERED: diphenhydrAMINE 50 MG CAP PO STA (07:34)
[2018-03-29 09:37] VITALS: BP 130/69
== END 2018-03-29 09:34 | disposition home or self-care (01) ==
LOC: EC 06:51
DX: J01.90 Acute sinusitis, unspecified (principal); G43.909 Migraine, unspecified, not intractable, without status migrainosus; I10 Essential (primary) hypertension; Z79.899 Other long term (current) drug therapy; Z88.1 Allergy status to other antibiotic agents; Z88.2 Allergy status to sulfonamides; Z91.041 Radiographic dye allergy status
CPT/HCPCS: 99283; 96374; 96375; 96361; J2765; J1885

== ENCOUNTER → 2018-09-15 | Outpatient (CLI) | payer OTHER ==
[2018-09-15 14:41] LABS: HCT 41.1 % (34.0-46.0); MCH 27.6 pg (25.0-35.0); MCHC 31.7 g/dL (31.0-37.0); Mean Platelet Volume 7.5; Platelet Count 285 k/uL (150-450); RBC 4.72 m/uL (3.80-5.40); RDW 14.1 % (11.5-15.5)
[2018-09-15 15:07] LABS: HCG,Quantitative Serum <2.4 mIU/mL
--- NOTE | 2018-09-15 16:00 | US ---
EXAMINATION TYPE: US transvaginal DATE OF EXAM: 09/15/2018 COMPARISON: None CLINICAL HISTORY: 32-year-old female N94.6 Dysmenorrhea, N92.0 menorrhagia. Painful periods x couple months, 2, para 2, history of 2 c-sections TECHNIQUE: Transvaginal only per ordering physician. Date of LMP: 09/04/2018 FINDINGS: EXAM MEASUREMENTS: Uterus: 6.4 x 3.3 x 4.1 cm Endometrial Stripe: 0.8 cm Right Ovary: 2.6 x 1.5 x 1.8 cm Left Ovary: 2.0 x 2.4 x 2.6 cm 1. Uterus: anteverted, trace fluid within the endocervical canal . scar demonstrated along the anterior lower uterine segment. 2. Endometrium: Slightly thickened per patient's LMP 3. Right Ovary: multiple follicles 4. Left Ovary: 1.3 x 1.6 x 1.6cm dominant follicle or functional cyst. 5. Bilateral Adnexa: wnl 6. Posterior cul-de-sac: wnl IMPRESSION: 1. scar demonstrated. Trace fluid within the endocervical canal. Endometrial stripe measure s 8 mm. 2. Follicular changes of the ovaries with a 1.6 cm dominant follicle or functional cyst on the left.
== END | disposition home or self-care (01) ==
LOC: RADUSWWP 14:25
PROVIDERS: ATTEND Obstetrics & Gynecology
DX: N92.0 Excessive and frequent menstruation with regular cycle (principal); N94.6 Dysmenorrhea, unspecified
CPT/HCPCS: 76830; 84443; 84702; 85027

== ENCOUNTER 2019-01-27 13:41 | Emergency (ER) | payer OTHER ==
[2019-01-27 14:07] VITALS: BP 133/83; PULSE 94; RESP 18; TEMP 98.5
[2019-01-27] MEDS ORDERED: KETOROLAC 60 MG/2 ML VIAL IM STA (15:07)
--- NOTE | 2019-01-27 15:49 | XR ---
EXAMINATION TYPE: XR lumbar spine 2 or 3V DATE OF EXAM: 01/27/2019 CLINICAL HISTORY: pain TECHNIQUE: Three views of the lumbar spine are submitted. COMPARISON: None. FINDINGS: There are 5 lumbar type vertebral bodies identified. The lumbar spine shows satisfactory alignment w ithout evidence of acute fracture or dislocation. Vertebral body heights are within normal limits. Moderate multilevel degenerative disc space narrowing and spondylosis. Grade 2 retrolisthesis L3 on L 4 measuring 1.1 cm. The overlying soft tissue appears unremarkable. IMPRESSION: Degenerative changes as discussed. Grade 2 retrolisthesis of L3 and L4. ICD 10 NO FRACTURE, INITIAL EVALUATION
[2019-01-27] MEDS ORDERED: SODIUM CHLORIDE 0.9% 1,000 ML IV STA (15:56)
[2019-01-27] MEDS ORDERED: diphenhydrAMINE 50 MG/ML 1 ML VIAL IVP STA (15:57)
[2019-01-27] MEDS ORDERED: FAMOTIDINE 20 MG/2 ML VIAL IV STA (15:57)
[2019-01-27] MEDS: methylPREDNISolone SOD SUCCI 125 MG/2 ML VIAL IV STA ×2 (16:10→16:22)
--- NOTE | 2019-01-27 16:11 | ED ---
General Adult HPI - General Chief complaint: Back Pain/Injury Stated complaint: Back pain Time Seen by Provider: 01/27/19 15:06 Source: patient, RN notes reviewed, old records reviewed Mode of arrival: ambulatory Limitations: no limitations - History of Present Illness Initial comments: 33-year-old female patient past history of chronic back pain presents ED chief complaint of red paralumbar back pain. Patient was says benign on for approximately 2 days. Patient denies any saddle anesthesia, loss of bowel or bladder control, lower extremity weakness. Patient states that she cannot be . Patient denies any nausea vomiting. Patient denies any other complaints. Systemic: Pt denies fatigue, fever/chills, rash. Pt denies weakness, night swe ats, weight loss. Neuro: Pt denies headache, visual disturbances, syncope or pre-syncope. HEENT: Pt denies ocular discharge or irritation, otalgia, rhinorrhea, pharyngitis or notable lymphadenopathy. Cardiopulmonary: Pt denies chest pain, SOB, heart palpitations, dyspnea on exertion. Abdominal/GI: Pt denies abdominal pain, n/v/d. : Pt denies dysuria, burning w/ urination, frequency/urgency. Denies new onset urinary or bowel incontinence. MSK: Pt denies loss of strength or function in extremities. Neuro: Pt denies new onset weakness, paresthesias. - Related Data Home Medications Medication Instructions Recorded Confirmed Lisinopril [Prinivil] 10 mg PO DAILY 04/16/17 03/29/18 Ibuprofen [Motrin Ib] 600 mg PO Q6H PRN 03/29/18 03/29/18 Previous Rx's Medication Instructions Recorded Amoxicillin/Potassium Clav 1 each PO Q12HR #20 tab 03/29/18 [Augmentin 875-125 Tablet] Fluticasone Propionate [Flonase 1 - 2 spray EA NOSTRIL DAILY 5 03/29/18 Allergy Relief] Days ml Allergies Allergy/AdvReac Type Severity Reaction Status Date / Time ciprofloxacin [From Cipro] Allergy Rash/Hives Verified 01/27/19 14:05 Iodinated Contrast- Oral and Allergy Rash/Hives Verified 01/27/19 14:05 IV Dye sulfamethoxazole Allergy Rash/Hives Verified 01/27/19 14:05 [From Bactrim] trimethoprim [From Bactrim] Allergy Rash/Hives Verified 01/27/19 14:05 Review of Systems ROS Statement: Those systems with pertinent positive or pertinent negative responses have been documented in the HPI. ROS Other: All systems not noted in ROS Statement are negative. Past Medical History Past Medical History: Hypertension Additional Past Medical History / Comment(s): arthritis and neuropathy History of Any Multi-Drug Resistant Organisms: None Reported Past Surgical History: Section, Cholecystectomy, Ear Surgery, Orthopedic Surgery Additional Past Surgical History / Comment(s): naman ear surgeries, andrey in femur in right leg-SINCE REMOVED, RT KNEE SCOPE, COLONOSCOPY Past Anesthesia/Blood Transfusion Reactions: No Reported Reaction Past Psychological History: Anxiety Smoking Status: Never smoker Past Alcohol Use History: Occasional Past Drug Use History: None Reported - Past Family History Mother Family Medical History: No Reported History General Exam - General Exam Comments Initial Comments: Constitutional: NAD, AOX3, Pt has pleasant affect. HEENT: NC/AT, trachea midline, neck supple, no lymphadenopathy. Posterior pharynx non erythematous, without exudates. External ears appear normal, without discharge. Mucous membranes moist. Eyes PERRLA, EOM intact. There is no scleral icterus. No pallor noted. Cardiopulmonary: RRR, no murmurs, rubs or gallops, no JVD noted. Lungs CTAB in anterior and posterior byers. No peripheral edema. Abdominal exam: Abdomen soft and non-distended. Abdomen mildly tender to palpation right lower quadrant. Bowel sounds active in LLQ. No hepatos plenomegaly. No ecchymosis Neuro: CN II-XII grossly intact. No nuchal rigidity. No raccon eyes, no martinez sign, no hemotympanum. No cervical spinal tenderness. MSK: Right straight leg raise positive. Right paralumbar region mildly tender to palpation. 5/5 strength psoas and quariceps muscles. Distal pulses intact and equal. Ambulatory. No posterior calf tenderness bilaterally, homans sign negative bilaterally. Posterior tibialis and radial pulse +2 bilaterally. Sensation intact in upper and lower extremities. Full active ROM in upper and lower extremities, 5/5 stregnth. Limitations: no limitations Course Vital Signs 01/27/19 14:05 Temperature 98.5 F Pulse Rate 94 Respiratory 18 Rate Blood Pressure 133/83 O2 Sat by Pulse 96 Oximetry Medical Decision Making - Medical Decision Making 33-year-old female patient past history of chronic back pain presents ED chief complaint of red paralumbar back pain. Patient was says benign on for approximately 2 days. Patient denies any saddle anesthesia, loss of bowel or bladder control, lower extremity weakness. Patient states that she cannot be . Patient denies any nausea vomiting. Patient denies any other complaints. Patient vital signs stable, afebrile. Physical exam displayed: Right straight leg raise positive. Right paralumbar region mildly tender to palpation. 5/5 strength psoas and quariceps muscles. Distal pulses intact and equal. Ambulatory. Right lower quadrant mildly tender to palpation. Left investigations revealed nonspecific CBC, CMP. Lactic acid within normal limits. Creatinine 0.74. UA negative. Lumbar spine displayed degenerative changes. CT and pelvis displayed decreased contrast in the kidneys. Spondylotic changes T12-L1, L1-L2. Patient feeling improved, we'll discharge orthopedic follow-up and return precautions. Case discussed with Dr. Cleveland - Lab Data Result diagrams: 01/27/19 16:15 01/27/19 16:15 Lab Results 01/27/19 01/27/19 01/27/19 Range/Units 16:15 16:15 16:15 WBC 7.0 (3.8-10.6) k/uL RBC 4.83 (3.80-5.40) m/uL Hgb 13.7 (11.4-16.0) gm/dL Hct 41.7 (34.0-46.0) % MCV 86.3 (80.0-100.0) fL MCH 28.4 (25.0-35.0) pg MCHC 32.9 (31.0-37.0) g/dL RDW 14.0 (11.5-15.5) % Plt Count 312 (150-450) k/uL Neutrophils % 55 % Lymphocytes % 35 % Monocytes % 6 % Eosinophils % 1 % Basophils % 1 % Neutrophils # 3.8 (1.3-7.7) k/uL Lymphocytes # 2.5 (1.0-4.8) k/uL Monocytes # 0.4 (0-1.0) k/uL Eosinophils # 0.1 (0-0.7) k/uL Basophils # 0.1 (0-0.2) k/uL Sodium 141 (137-145) mmol/L Potassium 4.1 (3.5-5.1) mmol/L Chloride 105 (98-107) mmol/L Carbon Dioxide 26 (22-30) mmol/L Anion Gap 10 mmol/L BUN 14 (7-17) mg/dL Creatinine 0.74 (0.52-1.04) mg/dL Est GFR (CKD-EPI)AfAm >90 (>60 ml/min/1.73 sqM) Est GFR (CKD-EPI)NonAf >90 (>60 ml/min/1.73 sqM) Glucose 84 (74-99) mg/dL Plasma Lactic Acid Emiliano 0.6 L (0.7-2.0) mmol/L Calcium 9.6 (8.4-10.2) mg/dL Total Bilirubin 0.5 (0.2-1.3) mg/dL AST 23 (14-36) U/L ALT 18 (9-52) U/L Alkaline Phosphatase 67 (38-126) U/L Total Protein 8.7 H (6.3-8.2) g/dL Albumin 4.6 (3.5-5.0) g/dL Lipase 68 (23-300) U/L Urine Color Urine Appearance (Clear) Urine pH (5.0-8.0) Ur Specific [place] (1.001-1.035) Urine Protein (Negative) Urine Glucose (UA) (Negative) Urine Ketones (Negative) Urine Blood (Negative) Urine Nitrite (Negative) Urine Bilirubin (Negative) Urine Urobilinogen (<2.0) mg/dL Ur Leukocyte Esterase (Negative) Urine RBC (0-5) /hpf Urine WBC (0-5) /hpf Ur Squamous Epith Cells (0-4) /hpf Urine Bacteria (None) /hpf Urine Mucus (None) /hpf Urine HCG, Qual (Not Detectd) 01/27/19 01/27/19 Range/Units 16:21 16:21 WBC (3.8-10.6) k/uL RBC (3.80-5.40) m/uL Hgb (11.4-16.0) gm/dL Hct (34.0-46.0) % MCV (80.0-100.0) fL MCH (25.0-35.0) pg MCHC (31.0-37.0) g/dL RDW (11.5-15.5) % Plt Count (150-450) k/uL Neutrophils % % Lymphocytes % % Monocytes % % Eosinophils % % Basophils % % Neutrophils # (1.3-7.7) k/uL Lymphocytes # (1.0-4.8) k/uL Monocytes # (0-1.0) k/uL Eosinophils # (0-0.7) k/uL Basophils # (0-0.2) k/uL Sodium (137-145) mmol/L Potassium (3.5-5.1) mmol/L Chloride (98-107) mmol/L Carbon Dioxide (22-30) mmol/L Anion Gap mmol/L BUN (7-17) mg/dL Creatinine (0.52-1.04) mg/dL Est GFR (CKD-EPI)AfAm (>60 ml/min/1.73 sqM) Est GFR (CKD-EPI)NonAf (>60 ml/min/1.73 sqM) Glucose (74-99) mg/dL Plasma Lactic Acid Emiliano (0.7-2.0) mmol/L Calcium (8.4-10.2) mg/dL Total Bilirubin (0.2-1.3) mg/dL AST (14-36) U/L ALT (9-52) U/L Alkaline Phosphatase (38-126) U/L Total Protein (6.3-8.2) g/dL Albumin (3.5-5.0) g/dL Lipase (23-300) U/L Urine Color Yellow Urine Appearance Cloudy H (Clear) Urine pH 5.5 (5.0-8.0) Ur Specific [place] 1.033 (1.001-1.035) Urine Protein Trace H (Negative) Urine Glucose (UA) Negative (Negative) Urine Ketones Negative (Negative) Urine Blood Negative (Negative) Urine Nitrite Negative (Negative) Urine Bilirubin Negative (Negative) Urine Urobilinogen <2.0 (<2.0) mg/dL Ur Leukocyte Esterase Negative (Negative) Urine RBC 1 (0-5) /hpf Urine WBC 2 (0-5) /hpf Ur Squamous Epith Cells 3 (0-4) /hpf Urine Bacteria Rare H (None) /hpf Urine Mucus Moderate H (None) /hpf Urine HCG, Qual Not Detected (Not Detectd) Disposition Clinical Impression: Lumbar back pain, Abdominal pain Disposition: HOME SELF-CARE Condition: Stable Instructions (If sedation given, give patient instructions): Acute Low Back Pain (ED), Abdominal Pain (ED) Additional Instructions: Patient to adhere to previously discussed treatment plan and will take medication(s) as directed. Patient to follow up with PCP in 1-2 days. Patient to return to ED if symptoms do not improve. Follow-up with primary care provider and orthopedic consult tomorrow, return to ER if condition worsens. Is patient prescribed a controlled substance at d/c from ED?: No Referrals: Maicol Emerson DO [Primary Care Provider] - 1-2 days Herbert Wang DO [Doctor of Osteopathic Medicine] - 1-2 days
[2019-01-27 16:30] LABS: Basophils # (A) 0.1 k/uL (0-0.2); Basophils % (A) 1 %; Eosinophils # (A) 0.1 k/uL (0-0.7); Eosinophils % (A) 1 %; HCT 41.7 % (34.0-46.0); HGB 13.7 gm/dL (11.4-16.0); Lymphocytes # (A) 2.5 k/uL (1.0-4.8); Lymphocytes % (A) 35 %; MCH 28.4 pg (25.0-35.0); MCHC 32.9 g/dL (31.0-37.0); MCV 86.3 fL (80.0-100.0); Monocytes # (A) 0.4 k/uL (0-1.0); Monocytes % (A) 6 %; Neutrophils # (A) 3.8 k/uL (1.3-7.7); Neutrophils % (A) 55 %; Platelet Count 312 k/uL (150-450); RBC 4.83 m/uL (3.80-5.40)
[2019-01-27 16:35] LABS: Appearance,Urine Cloudy (Clear); Bacteria,Urine Rare /hpf; Bilirubin,Urine Negative (Negative); Blood,Urine Negative (Negative); Color,Urine Yellow; Glucose,Urine (UA) Negative (Negative); Ketones,Urine Negative (Negative); Leukocyte Esterase,Urine Negative (Negative); Mucus,Urine Moderate /hpf; Nitrite,Urine Negative (Negative); PH, Urine 5.5 (5.0-8.0); Protein,Urine Trace (Negative); RBC,Urine 1 /hpf (0-5); Specific Gravity,Urine 1.033 (1.001-1.035); Squamous Epithelial Cell,Urine 3 /hpf (0-4); Urobilinogen,Urine <2.0 mg/dL (<2.0); WBC,Urine 2 /hpf (0-5)
[2019-01-27 16:39] LABS: ALT 18 U/L (9-52); AST 23 U/L (14-36); African American GFR (CKD) >90 (>60 ml/min/1.73 sqM); Albumin 4.6 g/dL (3.5-5.0); Alkaline Phosphatase 67 U/L (38-126); Anion Gap 10 mmol/L; Blood Urea Nitrogen 14 mg/dL (7-17); Calcium 9.6 mg/dL (8.4-10.2); Carbon Dioxide 26 mmol/L (22-30); Chloride 105 mmol/L (98-107); Glucose 84 mg/dL (74-99); Potassium 4.1 mmol/L (3.5-5.1); Sodium 141 mmol/L (137-145); Total Bilirubin 0.5 mg/dL (0.2-1.3); Total Protein 8.7 g/dL (6.3-8.2)
--- NOTE | 2019-01-27 17:16 | CT ---
EXAMINATION TYPE: CT abdomen pelvis w con DATE OF EXAM: 01/27/2019 COMPARISON: 05/18/2017 HISTORY: generalized pain. CT DLP: 3677 mGycm Automated exposure control for dose reduction was used. TECHNIQUE: Helical acquisition of images was performed from the lung bases through the pelvis. CONTRAST: Performed without Oral Contrast and with IV Contrast, patient injected with 100 mL of Isovue 300. FINDINGS: Lung bases are clear. There is no pleural effusion. Heart size is normal. Liver spleen pancreas appear normal. Stomach appears normal. Bile ducts are not dilated. There are cl ips from cholecystectomy. There is no adrenal mass. Kidneys show satisfactory contrast opacification. There is no hydronephrosi s. Ureters are not dilated. There is very little contrast in the renal collecting systems on the gasper yed images. There is no retroperitoneal adenopathy. Bladder is almost empty. Uterus is anteverted. Th ere is no free fluid in the pelvis. There is no evidence of pelvic mass. There is no inguinal hernia. There is no evidence of a bowel obstruction. Appendix appears normal. There is no mesenteric edema. There is no ascites or free air. Lumbar vertebra have normal alignment. Bony pelvis is intact. There are mild spondylotic changes in the lumbar spine. There calcified posterior disc herniation at T12-L1 and L1-L2. There is some narrowing of the spinal canal. IMPRESSION: THERE IS DECREASED CONTRAST ON THE DELAYED IMAGES IN THE KIDNEYS THAT COULD RELATE TO RENAL FAILURE. CLINICAL CORRELATION RECOMMENDED. NO RENAL OBSTRUCTION. SPONDYLOTIC CHANGES IN THERE IS SOME MILD SPINAL STENOSIS AT T12-L1 AND L1-L2. NORMAL APPENDIX. NO EV IDENCE OF COLITIS.
[2019-01-27] MEDS ORDERED: ACET/COD 300 MG/30 MG STARTER PACK 6 TAB BTL PO STA (17:26)
== END 2019-01-27 17:38 | disposition home or self-care (01) ==
LOC: EC 13:41
DX: M54.5 Low back pain (principal); R10.9 Unspecified abdominal pain; M47.815 Spondylosis without myelopathy or radiculopathy, thoracolumbar region; I10 Essential (primary) hypertension; Z88.1 Allergy status to other antibiotic agents; Z88.2 Allergy status to sulfonamides; Z91.041 Radiographic dye allergy status; Z79.899 Other long term (current) drug therapy; Z90.49 Acquired absence of other specified parts of digestive tract
CPT/HCPCS: 36415; 80053; 83605; 83690; 85025; 81001; 81025; 72100; 74177; 99284; 96374; 96375 ×2; 96361; 96372; J1200; J2930; J1885; Q9967

== ENCOUNTER 2019-08-30 12:36 | Outpatient (CLI) | payer OTHER ==
[2019-08-30 17:22] VITALS: BP 133/66; RESP 18; TEMP 98.8
[2019-08-30 17:25] VITALS: PULSE 112
--- NOTE | 2019-08-31 08:00 | P.MSEPDOC ---
Presenting Problems - Arrival Data Date of Arrival on Unit: 08/30/19 Time of Arrival on Unit: 12:30 Mode of Transport: Ambulatory Vital Signs - Temperature Temperature: 98.8 F Temperature Source: Oral - Pulse Right Brachial Pulse Rate: 112 Pulse Assessment Method: Automatic Cuff - Respirations Respiratory Rate: 18 Oxygen Delivery Method: Room Air O2 Sat by Pulse Oximetry: 95 - Blood Pressure Right Arm Blood Pressure: 133/66 Blood Pressure Mean: 88 Blood Pressure Source: Automatic Cuff Physician Notification (Pre) - Physician Notified Spoke With: justa Lewis Order Received: Yes - Notification Comment Comment: discharge home Medical Screen Scoring (Post) - Cervical Exam Dilation: Exam Deferred - Uterine Contractions Frequency: N/A Duration: N/A Intensity: N/A - Maternal Vital Signs Maternal Temperature: N/A Maternal Blood Pressure: N/A Signs of Preeclampsia: N/A Maternal Respirations: N/A - Pain Assessment Pain Location and Character: Lower, Abdomen Pain Scale Used: Numeric (1 - 10) Pain Intensity: 6 Pain Description: *Acute Pain Frequency: Intermittent Pain Duration: 1 Pain Duration Units: Days Pain Behavior: None Exhibited, Vocalization Pain Aggravating Factors: Activity Non-Pharmacological Interventions: Position/Reposition - Maternal Trauma Maternal Trauma: N/A - Assessment - Baby A Heart Rate: 145 Heart Rate - NICHD Category: Category I (Normal) = 0 Position: N/A Station: N/A - Total Score Total Score - Baby A: 0 Total Score - Baby B: 0 Total Score - Baby C: 0 - Post Treatment Level of Risk Post Treatment Level of Risk - Baby A: Low (0-5) Post Treatment Level of Risk - Baby B: Low (0-5) Post Treatment Level of Risk - Baby C: Low (0-5) Physician Notification (Post) - Physician Notified Physician Notified Date: 08/30/19 Physician Notified Time: 13:50 Spoke With: justa Lewis Order Received: Yes - Notification Comment Comment: discharge home Disposition - Disposition OB Disposition: Discharge to home Discharge Date: 08/30/19 Discharge Time: 14:00 I agree with the RN Medical Screening Exam: Yes Risk & Benefit of care provided described in d/c instruction: Yes Diagnosis: RELATED CONDITIONS, UNSPECIFIED, SECOND TRIMESTER
== END 2019-08-30 14:03 | disposition home or self-care (01) ==
LOC: FBPOP 12:36
PROVIDERS: ATTEND Obstetrics & Gynecology
DX: O26.92 Pregnancy related conditions, unspecified, second trimester (principal); Z3A.00 Weeks of gestation of pregnancy not specified
CPT/HCPCS: 99213

== ENCOUNTER 2020-07-08 10:03 | Emergency (ER) | payer OTHER ==
[2020-07-08 10:15] VITALS: BP 138/97; PULSE 95; RESP 20; TEMP 98.4
[2020-07-08] MEDS ORDERED: HYDROmorphone 1 MG/ML 1 ML SYRINGE IM STA (10:32)
--- NOTE | 2020-07-08 10:37 | ED ---
Fall HPI - General Chief Complaint: Fall Stated Complaint: fall Time Seen by Provider: 07/08/20 10:17 Source: patient, RN notes reviewed Mode of arrival: ambulatory Limitations: no limitations - History of Present Illness Initial Comments: 34-year-old female presents emergency Department chief complaint slip and fall. Patient states that she slipped on some ice morning falling onto her left hip. Patient complains of pelvic pain. Denies any head injury no loss conscious A she has no increasing back pain, neck pain or any other muscle skeletal injury. She does admit to chronic back pain denies any bowel, bladder incontinence or retention or saddle anesthesias. Denies any chance . - Related Data Home Medications Medication Instructions Recorded Confirmed Docusate [Colace] 100 mg PO DAILY PRN MDD 100 mg 08/30/19 08/30/19 NIFEdipine [Procardia XL] 30 mg PO DAILY MDD 30 mg 08/30/19 08/30/19 NIFEdipine [Procardia XL] 90 mg PO DAILY 08/30/19 08/30/19 Pnv,Calcium 72/Iron/Folic Acid 1 each PO DAILY MDD 1 tab 08/30/19 08/30/19 [ Plus Tablet] Previous Rx's Medication Instructions Recorded Ibuprofen [Motrin] 600 mg PO Q8HR PRN #20 tab 07/08/20 Allergies Allergy/AdvReac Type Severity Reaction Status Date / Time ciprofloxacin [From Cipro] Allergy Rash/Hives Verified 01/27/19 14:05 Iodinated Contrast Media Allergy Rash/Hives Verified 07/08/20 10:14 [Iodinated Contrast- Oral and IV Dye] sulfamethoxazole Allergy Rash/Hives Verified 07/08/20 10:14 [From Bactrim] trimethoprim [From Bactrim] Allergy Rash/Hives Verified 07/08/20 10:14 Review of Systems ROS Statement: Those systems with pertinent positive or pertinent negative responses have been documented in the HPI. ROS Other: All systems not noted in ROS Statement are negative. Past Medical History Past Medical History: Hypertension Additional Past Medical History / Comment(s): arthritis and neuropathy History of Any Multi-Drug Resistant Organisms: None Reported Past Surgical History: Section, Cholecystectomy, Ear Surgery, Ortho pedic Surgery Additional Past Surgical History / Comment(s): naman ear surgeries, andrey in femur in right leg-SINCE REMOVED, RT KNEE SCOPE, COLONOSCOPY Past Anesthesia/Blood Transfusion Reactions: No Reported Reaction Past Psychological History: Anxiety Smoking Status: Never smoker Past Alcohol Use History: Occasional Past Drug Use History: None Reported - Past Family History Mother Family Medical History: No Reported History General Exam Limitations: no limitations General appearance: alert, in no apparent distress Head exam: Present: atraumatic, normocephalic, normal inspection Eye exam: Present: normal appearance, PERRL, EOMI. Absent: scleral icterus, conjunctival injection, periorbital swelling ENT exam: Present: normal exam, normal oropharynx, mucous membranes moist Neck exam: Present: normal inspection, full ROM. Absent: tenderness, meningismus, lymphadenopathy Respiratory exam: Present: normal lung sounds bilaterally. Absent: respiratory distress, wheezes, rales, rhonchi, stridor Cardiovascular Exam: Present: regular rate, normal rhythm, normal heart sounds. Absent: systolic murmur, diastolic murmur, rubs, gallop, clicks Extremities exam: Present: other (Tenderness to left hip, left buttocks region, no iris deformity strength equal bilaterally lower extremities no upper extremity injury) Back exam: Present: full ROM. Absent: tenderness, paraspinal tenderness, vertebral tenderness Neurological exam: Present: alert, oriented X3, CN II-XII intact, reflexes normal. Absent: motor sensory deficit Skin exam: Present: warm, dry, intact, normal color. Absent: rash Course Vital Signs 07/08/20 10:13 Temperature 98.4 F Pulse Rate 95 Respiratory 20 Rate Blood Pressure 138/97 O2 Sat by Pulse 99 Oximetry Medical Decision Making - Medical Decision Making 34-year-old present for slip and fall x-rays are negative for acute fracture. Patient has contusion. Patient was discharged in stable condition return parameters discussed no red flag symptoms. Disposition Clinical Impression: Fall, Contusion of hip, left, Contusion of buttock Disposition: HOME SELF-CARE Condition: Stable Instructions (If sedation given, give patient instructions): Contusion in Adults (ED) Additional Instructions: Please return to the Emergency Department if symptoms worsen or any other concerns. Prescriptions: Ibuprofen [Motrin] 600 mg PO Q8HR PRN #20 tab PRN Reason: Pain Is patient prescribed a controlled substance at d/c from ED?: No Referrals: Maicol Emerson DO [Primary Care Provider] - 1-2 days Time of Disposition: 11:03
--- NOTE | 2020-07-08 10:57 | XR ---
EXAMINATION TYPE: XR pelvis AP view DATE OF EXAM: 07/08/2020 CLINICAL HISTORY: Pain after fall injury. TECHNIQUE: 2 AP portable views of the chest are obtained. COMPARISON: CT January 27, 2019 FINDINGS: There is no acute fracture/dislocation evident in the pelvis. The hip and sacroiliac join ts appear symmetric and thought within normal limits. Pubic symphysis is intact. The overlying soft t issue appears unremarkable. IMPRESSION: There is no acute fracture or dislocation in the pelvis. No significant change from prio r.
[2020-07-08] MEDS ORDERED: ACET/COD 300 MG/30 MG STARTER PACK 6 TAB BTL PO STA (11:01)
== END 2020-07-08 11:16 | disposition home or self-care (01) ==
LOC: EC 10:03
DX: S30.0XXA Contusion of lower back and pelvis, initial encounter (principal); S70.02XA Contusion of left hip, initial encounter; I10 Essential (primary) hypertension; F41.9 Anxiety disorder, unspecified; Z79.1 Long term (current) use of non-steroidal anti-inflammatories (NSAID); W00.0XXA Fall on same level due to ice and snow, initial encounter
CPT/HCPCS: 72170; 99283; 96372; J1170

== ENCOUNTER 2021-05-02 12:28 | Emergency (ER) | payer OTHER ==
[2021-05-02 13:18] LABS: Basophils % (A) 0 %; Eosinophils # (A) 0.1 k/uL (0-0.7); Eosinophils % (A) 0 %; HGB 14.1 gm/dL (11.4-16.0); Lymphocytes # (A) 1.4 k/uL (1.0-4.8); Lymphocytes % (A) 11 %; MCH 26.8 pg (25.0-35.0); MCHC 31.9 g/dL (31.0-37.0); MCV 83.9 fL (80.0-100.0); Monocytes # (A) 0.4 k/uL (0-1.0); Monocytes % (A) 3 %; Neutrophils # (A) 11.3 k/uL (1.3-7.7); Neutrophils % (A) 85 %; Platelet Count 321 k/uL (150-450); RBC 5.25 m/uL (3.80-5.40); WBC 13.2 k/uL (3.8-10.6)
[2021-05-02] MEDS ORDERED: SODIUM CHLORIDE 0.9% 2,000 ML IV ONE (13:30)
[2021-05-02] MEDS ORDERED: KETOROLAC 15 MG/ML 1 ML VIAL IVP STA (13:30)
[2021-05-02] MEDS ORDERED: ONDANSETRON 4 MG/2 ML VIAL IVP STA (13:31)
[2021-05-02 13:42] LABS: ALT 12 U/L (4-34); AST 16 U/L (14-36); African American GFR (CKD) >90 (>60 ml/min/1.73 sqM); Albumin 4.4 g/dL (3.5-5.0); Alkaline Phosphatase 99 U/L (38-126); Anion Gap 11 mmol/L; Blood Urea Nitrogen 11 mg/dL (7-17); Calcium 9.5 mg/dL (8.4-10.2); Carbon Dioxide 23 mmol/L (22-30); Chloride 105 mmol/L (98-107); Glucose 117 mg/dL (74-99); Non-African American GFR(CKD) >90 (>60 ml/min/1.73 sqM); Potassium 3.9 mmol/L (3.5-5.1); Sodium 139 mmol/L (137-145); Total Bilirubin 0.7 mg/dL (0.2-1.3); Total Protein 8.2 g/dL (6.3-8.2)
--- NOTE | 2021-05-02 15:01 | ED ---
Headache HPI - General Chief Complaint: Headache Stated Complaint: Headache Time Seen by Provider: 05/02/21 12:48 Source: patient, RN notes reviewed Mode of arrival: ambulatory Limitations: no limitations - History of Present Illness Initial Comments: 35-year-old female presents emergency from chief complaint of fever cough headache sore throat. Patient states that she had a consistent with this was a for mono recently. Patient states that she feels like she symptomatic. Denies any neck pain or neck stiffness no focal weakness. Patient states that she is not taking this medication nauseated complaint of upper abdominal pain. Patient denies any, 19 exposures patient offers no complaints. - Related Data Home Medications Medication Instructions Recorded Confirmed NIFEdipine [Procardia XL] 90 mg PO DAILY 08/30/19 05/02/21 Allergies Allergy/AdvReac Type Severity Reaction Status Date / Time ciprofloxacin [From Cipro] Allergy Rash/Hives Verified 05/02/21 13:40 Iodinated Contrast Media Allergy Rash/Hives Verified 05/02/21 13:40 [Iodinated Contrast- Oral and IV Dye] sulfamethoxazole Allergy Rash/Hives Verified 05/02/21 13:40 [From Bactrim] trimethoprim [From Bactrim] Allergy Rash/Hives Verified 05/02/21 13:40 Review of Systems ROS Statement: Those systems with pertinent positive or pertinent negative responses have been documented in the HPI. ROS Other: All systems not noted in ROS Statement are negative. Past Medical History Past Medical History: Hypertension Additional Past Medical History / Comment(s): arthritis and neuropathy History of Any Multi-Drug Resistant Organisms: None Reported Past Surgical History: Section, Cholecystectomy, Ear Surgery, Orthopedic Surgery Additional Past Surgical History / Comment(s): naman ear surgeries, andrey in femur in right leg-SINCE REMOVED, RT KNEE SCOPE, COLONOSCOPY Past Anesthesia/Blood Transfusion Reactions: No Reported Reaction Past Psychological History: Anxiety Smoking Status: Never smoker Past Alcohol Use History: Occasional Past Drug Use History: None Reported - Past Family History Mother Family Medical History: No Reported History General Exam Limitations: no limitations General appearance: alert, in no apparent distress Head exam: Present: atraumatic, normocephalic, normal inspection Eye exam: Present: normal appearance, PERRL, EOMI. Absent: scleral icterus, c onjunctival injection, periorbital swelling ENT exam: Present: normal exam, normal oropharynx, mucous membranes moist Neck exam: Present: normal inspection, full ROM. Absent: tenderness, meningismus, lymphadenopathy Respiratory exam: Present: normal lung sounds bilaterally. Absent: respiratory distress, wheezes, rales, rhonchi, stridor Cardiovascular Exam: Present: regular rate, normal rhythm, normal heart sounds. Absent: systolic murmur, diastolic murmur, rubs, gallop, clicks GI/Abdominal exam: Present: soft, normal bowel sounds. Absent: distended, tenderness, guarding, rebound, rigid Neurological exam: Present: alert, oriented X3, CN II-XII intact, reflexes normal. Absent: motor sensory deficit Skin exam: Present: warm, dry, intact, normal color. Absent: rash Course Vital Signs 05/02/21 05/02/21 12:36 15:04 Temperature 99 F 98.7 F Pulse Rate 107 H 91 Respiratory 18 18 Rate Blood Pressure 166/94 133/89 O2 Sat by Pulse 99 98 Oximetry Medical Decision Making - Medical Decision Making 37 observed for viral-type symptoms. Patient's workup was negative patient feels greatly improved discharged in stable condition return parameters were discussed. - Lab Data Result diagrams: 05/02/21 12:55 05/02/21 12:55 Lab Results 05/02/21 05/02/21 05/02/21 Range/Units 12:55 12:55 12:55 WBC 13.2 H (3.8-10.6) k/uL RBC 5.25 (3.80-5.40) m/uL Hgb 14.1 (11.4-16.0) gm/dL Hct 44.0 (34.0-46.0) % MCV 83.9 (80.0-100.0) fL MCH 26.8 (25.0-35.0) pg MCHC 31.9 (31.0-37.0) g/dL RDW 14.0 (11.5-15.5) % Plt Count 321 (150-450) k/uL MPV 8.0 Neutrophils % 85 % Lymphocytes % 11 % Monocytes % 3 % Eosinophils % 0 % Basophils % 0 % Neutrophils # 11.3 H (1.3-7.7) k/uL Lymphocytes # 1.4 (1.0-4.8) k/uL Monocytes # 0.4 (0-1.0) k/uL Eosinophils # 0.1 (0-0.7) k/uL Basophils # 0.0 (0-0.2) k/uL Sodium 139 (137-145) mmol/L Potassium 3.9 (3.5-5.1) mmol/L Chloride 105 (98-107) mmol/L Carbon Dioxide 23 (22-30) mmol/L Anion Gap 11 mmol/L BUN 11 (7-17) mg/dL Creatinine 0.61 (0.52-1.04) mg/dL Est GFR (CKD-EPI)AfAm >90 (>60 ml/min/1.73 sqM) Est GFR (CKD-EPI)NonAf >90 (>60 ml/min/1.73 sqM) Glucose 117 H (74-99) mg/dL Calcium 9.5 (8.4-10.2) mg/dL Total Bilirubin 0.7 (0.2-1.3) mg/dL AST 16 (14-36) U/L ALT 12 (4-34) U/L Alkaline Phosphatase 99 (38-126) U/L Total Protein 8.2 (6.3-8.2) g/dL Albumin 4.4 (3.5-5.0) g/dL Coronavirus (PCR) (Not Detectd) Heterophile Antibody Negative (Negative) Influenza Type A RNA (Not Detectd) Influenza Type B (PCR) (Not Detectd) 05/02/21 05/02/21 Range/Units 12:55 14:25 WBC (3.8-10.6) k/uL RBC (3.80-5.40) m/uL Hgb (11.4-16.0) gm/dL Hct (34.0-46.0) % MCV (80.0-100.0) fL MCH (25.0-35.0) pg MCHC (31.0-37.0) g/dL RDW (11.5-15.5) % Plt Count (150-450) k/uL MPV Neutrophils % % Lymphocytes % % Monocytes % % Eosinophils % % Basophils % % Neutrophils # (1.3-7.7) k/uL Lymphocytes # (1.0-4.8) k/uL Monocytes # (0-1.0) k/uL Eosinophils # (0-0.7) k/uL Basophils # (0-0.2) k/uL Sodium (137-145) mmol/L Potassium (3.5-5.1) mmol/L Chloride (98-107) mmol/L Carbon Dioxide (22-30) mmol/L Anion Gap mmol/L BUN (7-17) mg/dL Creatinine (0.52-1.04) mg/dL Est GFR (CKD-EPI)AfAm (>60 ml/min/1.73 sqM) Est GFR (CKD-EPI)NonAf (>60 ml/min/1.73 sqM) Glucose (74-99) mg/dL Calcium (8.4-10.2) mg/dL Total Bilirubin (0.2-1.3) mg/dL AST (14-36) U/L ALT (4-34) U/L Alkaline Phosphatase (38-126) U/L Total Protein (6.3-8.2) g/dL Albumin (3.5-5.0) g/dL Coronavirus (PCR) Not Detected (Not Detectd) Heterophile Antibody (Negative) Influenza Type A RNA Not Detected (Not Detectd) Influenza Type B (PCR) Not Detected (Not Detectd) Disposition Clinical Impression: Viral illness, Migraine headache Disposition: HOME SELF-CARE Condition: Stable Instructions (If sedation given, give patient instructions): Viral Syndrome (ED) Additional Instructions: Please return to the Emergency Department if symptoms worsen or any other concerns. Is patient prescribed a controlled substance at d/c from ED?: No Referrals: Maicol Emerson DO [Primary Care Provider] - 1-2 days Time of Disposition: 15:54
[2021-05-02 15:04] VITALS: PULSE 91
[2021-05-02 15:58] VITALS: BP 154/94; RESP 16; TEMP 97.4
== END 2021-05-02 15:58 | disposition home or self-care (01) ==
LOC: EC 12:28
DX: G43.909 Migraine, unspecified, not intractable, without status migrainosus (principal); I10 Essential (primary) hypertension; F41.9 Anxiety disorder, unspecified; Z88.1 Allergy status to other antibiotic agents; Z88.2 Allergy status to sulfonamides; Z90.49 Acquired absence of other specified parts of digestive tract; Z20.822 Contact with and (suspected) exposure to COVID-19
CPT/HCPCS: 99284; 96374; 96375 ×2; 36415; 80053; 85025; 86308; 87502; 87635; J2405; J1885; J1790

== ENCOUNTER 2023-05-19 15:14 | Emergency (ER) | payer MEDICARE, OTHER ==
[2023-05-19] MEDS ORDERED: ACETAMINOPHEN TAB 325 MG TAB PO STA (15:32)
[2023-05-19] MEDS ORDERED: ONDANSETRON ODT 4 MG TAB PO STA (15:32)
--- NOTE | 2023-05-19 15:41 | ED ---
URI HPI - General Chief Complaint: Upper Respiratory Infection Stated Complaint: NVD Time Seen by Provider: 05/19/23 15:27 Source: patient, RN notes reviewed Mode of arrival: ambulatory Limitations: no limitations - History of Present Illness Initial Comments: Patient is a 37-year-old female presented ER with chief complaint of fever and cough. Patient states for the past 2-3 days she's been experiencing a cough, congestion, nausea/vomiting and myalgia. Patient states she has not been taking anything [id number] for fevers besides cold showers. Patient states her fever has gotten as high as 102.0. Patient also endorses mild shortness of breath. Patient states she's been unable to keep anything down due to her nausea and vomiting. Patient denies any other complaints. - Related Data Home Medications Medication Instructions Recorded Confirmed NIFEdipine [Procardia XL] 90 mg PO DAILY 08/30/19 05/02/21 Previous Rx's Medication Instructions Recorded Nirmatrelvir/Ritonavir [Paxlovid See Rx Instructions .ROUTE 05/19/23 2X150 mg-100 mg (Eua)] .COMPLEX #30 tab Allergies Allergy/AdvReac Type Severity Reaction Status Date / Time ciprofloxacin [From Cipro] Allergy Rash/Hives Verified 05/19/23 15:19 sulfamethoxazole Allergy Rash/Hives Verified 05/19/23 15:19 [From Bactrim] trimethoprim [From Bactrim] Allergy Rash/Hives Verified 05/19/23 15:19 Review of Systems ROS Statement: Those systems with pertinent positive or pertinent negative responses have been documented in the HPI. ROS Other: All systems not noted in ROS Statement are negative. Past Medical History Past Medical History: Hypertension Additional Past Medical History / Comment(s): arthritis and neuropathy History of Any Multi-Drug Resistant Organisms: None Reported Past Surgical History: Section, Cholecystectomy, Ear Surgery, Orthopedic Surgery Additional Past Surgical History / Comment(s): naman ear surgeries, andrey in femur in right leg-SINCE REMOVED, RT KNEE SCOPE, COLONOSCOPY Past Anesthesia/Blood Transfusion Reactions: No Reported Reaction Past Psychological History: Anxiety Smoking Status: Never smoker Past Alcohol Use History: Occasional Past Drug Use History: None Reported - Past Family History Mother Family Medical History: No Reported History General Exam Limitations: no limitations General appearance: alert, in no apparent distress Head exam: Present: atraumatic, normocephalic, normal inspection Eye exam: Present: normal appearance, PERRL, EOMI. Absent: scleral icterus, conjunctival injection, periorbital swelling ENT exam: Present: normal exam, normal oropharynx, mucous membranes moist, TM's normal bilaterally (Right ear canal has red drainage. TM is unable to be visualized on the right.) Neck exam: Present: normal inspection. Absent: tenderness, meningismus, lymphadenopathy Respiratory exam: Present: normal lung sounds bilaterally. Absent: respiratory distress, wheezes, rales, rhonchi, stridor Cardiovascular Exam: Present: regular rate, normal rhythm, normal heart sounds. Absent: systolic murmur, diastolic murmur, rubs, gallop, clicks GI/Abdominal exam: Present: soft, tenderness (Generalized tenderness), normal bowel sounds. Absent: distended, guarding, rebound, rigid Neurological exam: Present: alert, oriented X3, CN II-XII intact Psychiatric exam: Present: normal affect, normal mood Skin exam: Present: warm, dry, intact, normal color. Absent: rash Course Vital Signs 05/19/23 05/19/23 15:16 15:27 Temperature 99.9 F H Pulse Rate 97 Respiratory 16 20 Rate Blood Pressure 143/87 O2 Sat by Pulse 97 Oximetry Medical Decision Making - Medical Decision Making Was pt. sent in by a medical professional or institution (DOREEN Hdz, DATA WAREHOUSE ANALYST, urgent care, hospital, or [facility]...) When possible be specific @ -No Did you speak to anyone other than the patient for history (EMS, parent, family, police, friend...)? What history was obtained from this source @ -No Did you review nursing and triage notes (agree or disagree)? Why? @ -I reviewed and agree with nursing and triage notes Were old charts reviewed (outside hosp., previous admission, EMS record, old EKG, old radiological studies, urgent care reports/EKG's, [facility] records)? Report findings @ -No old charts were reviewed Differential Diagnosis (chest pain, altered mental status, abdominal pain women, abdominal pain men, vaginal bleeding, weakness, fever, dyspnea, syncope, headache, dizziness, GI bleed, back pain, seizure, CVA, palpatations, mental health, musculoskeletal)? @ -Differential Fever: Pneumonia, viral URI, endocarditis, myocarditis, pericarditis, otitis, sinusitis, peritonsillar Abscess, retropharyngeal Abscess, epiglottitis, peritonitis, appendicitis, Dominique cystitis, diverticulitis, hepatitis, colitis, UTI, PID, TOA, pyelonephritis, prostatitis, epididymitis, meningitis, encephalitis, pulmonary embolism, CVA, thyroid storm, pancreatitis, adrenal crisis, cavernous sinus thrombosis, this is not meant to be an all- inclusive list. EKG interpreted by me (3pts min.). @ -None X-rays interpreted by me (1pt min.). @ -Chest x-ray significant foe bilateral patchy infiltrates. CT interpreted by me (1pt min.). @ -None done U/S interpreted by me (1pt. min.). @ -None done What testing was considered but not performed or refused? (CT, X-rays, U/S, labs)? Why? @ -None What meds were considered but not given or refused? Why? @ -None Did you discuss the management of the patient with other professionals (professionals i.e. , PA, DATA WAREHOUSE ANALYST, lab, RT, psych nurse, high school social studies teacher, assorter laundry, teacher, medical corps officer, piano case maker)? Give summary @ -No Was smoking cessation discussed for >3mins.? @ -No Was critical care preformed (if so, how long)? @ -No Were there social determinants of health that impacted care today? How? (Homelessness, low income, unemployed, alcoholism, drug addiction, transportation, low edu. Level, literacy, decrease access to med. care, [facility] [facility], rehab)? @ -No Was there de-escalation of care discussed even if they declined (Discuss DNR or withdrawal of care, Hospice)? DNR status @ -No What co-morbidities impacted this encounter? (DM, HTN, Smoking, COPD, CAD, Cancer, CVA, ARF, Chemo, Hep., AIDS, mental health diagnosis, sleep apnea, morbid obesity)? @ -None Was patient admitted / discharged? Hospital course, mention meds given and route, prescriptions, significant lab abnormalities, going to OR and other pertinent info. @ -Discharge. Patient is a 37-year-old female presented ER with a chief complaint of fever and cough. Vital signs stable. Patient did have a fever of 99.9 upon arrival to the ER. Physical exam and history were completed. Viral swabs were significant for influenza A and COVID-19. Chest x-ray showed findings of patchy bilateral lung infiltrates. Patient received PO tylenol for fever control in the ER, with improvement. I discussed lab and imaging findings with patient. Patient will be prescribed Paxlovid. I advised OTC tylenol and motrin for fever control. Return parameters were discussed. Patient will be discharged in stable condition with follow-up to PCP. Patient expressed understanding and agreement with care plan. Undiagnosed new problem with uncertain prognosis? @ -No Drug Therapy requiring intensive monitoring for toxicity (Heparin, Nitro, Insulin, Cardizem)? @ -No Were any procedures done? @ -No Diagnosis/symptom? @ -Influenza A / COVID-19 Acute, or Chronic, or Acute on Chronic? @ -Acute Uncomplicated (without systemic symptoms) or Complicated (systemic symptoms)? @ -Uncomplicated Side effects of treatment? @ -No Exacerbation, Progression, or Severe Exacerbation? @ -No Poses a threat to life or bodily function? How? (Chest pain, [place], [place], pneumonia, PE, COPD, DKA, ARF, appy, cholecystitis, CVA, Diverticulitis, Homicidal, Suicidal, threat to staff... and all critical care pts) @ -No - Lab Data Lab Results 05/19/23 Range/Units 15:40 Influenza Type A (PCR) Detected A (Not Detectd) Influenza Type B (PCR) Not Detected (Not Detectd) RSV (PCR) Not Detected (Not Detectd) SARS-CoV-2 (PCR) Detected A (Not Detectd) - Radiology Data Radiology results: report reviewed, image reviewed Disposition Clinical Impression: COVID-19, RSV (acute bronchiolitis due to respiratory syncytial virus) Disposition: HOME SELF-CARE Condition: Stable Instructions (If sedation given, give patient instructions): Upper Respiratory Infection (ED) Additional Instructions: Please use [id number] Tylenol and Motrin for fever control. Return to the ER for any new or worsening symptoms. Prescriptions: Nirmatrelvir/Ritonavir [Paxlovid 2X150 mg-100 mg (Eua)] See Rx Instructions .ROUTE .COMPLEX #30 tab Is patient prescribed a controlled substance at d/c from ED?: No Referrals: Maicol Emerson DO [Primary Care Provider] - 1-2 days Time of Disposition: 17:08
--- NOTE | 2023-05-19 16:10 | XR ---
EXAMINATION TYPE: XR chest 2V DATE OF EXAM: 05/19/2023 COMPARISON: 05/18/2012 INDICATION: Cough and congestion TECHNIQUE: Frontal and lateral views of the chest are obtained. FINDINGS: The heart size is normal. The pulmonary vasculature is normal. Patchy infiltrates at the lung bases. Correlate for atelectasis or pneumonia. Consider atypical pneum onia.. IMPRESSION: 1. Patchy bilateral lung infiltrates. Correlate for atelectasis pneumonia or atypical pneumonia. Foll ow-up is recommended.
[2023-05-19 17:26] VITALS: BP 138/76; PULSE 91; RESP 18; TEMP 98.7
== END 2023-05-19 17:20 | disposition home or self-care (01) ==
LOC: EC 15:14
DX: U07.1 COVID-19 (principal); J10.1 Influenza due to other identified influenza virus with other respiratory manifestations; J21.0 Acute bronchiolitis due to respiratory syncytial virus; I10 Essential (primary) hypertension; Z79.899 Other long term (current) drug therapy; Z88.1 Allergy status to other antibiotic agents; Z88.2 Allergy status to sulfonamides
CPT/HCPCS: 71046; 87636; 99284